=== PATIENT | male | born 1965 | race Caucasian/White ===

== ENCOUNTER 2017-03-11 15:18 | Inpatient (IN) | payer OTHER ==
--- NOTE | ~2017-03-11 | FU ---
[facility] Nutrition Therapy DATE: 03/19/17 Patient: ALL Mahoney NATHAN Physician: KRISTOPHER Address: [address] [place] [address] Room/Bed: [address] [place] [address], Zip: [place] [address] Admit Date: 03/11/17 Date of : 67 Height: 6 0 Weight: 101 46.26 NUTRITION MONITORING/FOLLOW-UP: Reason: Nutrition follow-up Anthropometrics: Ht: 6'0" Adm wt: 45.9 kg (101#) BMI: 13.7 Current wt (03/17): 45.9 kg (101#) Labs: Na+ 133, Cl- 96, Gluc 133, BUN 38, POC 146, GFR 58.2 Meds: Zofran, Levemir, Novolog, Pepcid, K, Mg I&O's: --/1303, last BM 03/18 (diarrhea) Skin: no changes, no edema noted Estimated Nutrition Needs: 9556-5320 kcal (35-40 kcal/kg) 55-82 g protein (1.2-1.8 g/kg) Assessment: Chart reviewed, events noted. Per chart, pt is currently NPO d/t dysphagia and aspiration from findings on ADMISSIONS CONSULTANT video eval. Per chart, questionable plans for PEG. Pt reported "wanting to eat" and stated he had not eaten since 2 days ago. Pt reported no diet questions at this time. RD to continue to follow. See recommendations below. Dx: Inadequate protein-energy intake RT Dx, clinical condition AEB 57% IBW. -ACTIVE -Increased nutrient needs RT Dx, PMH AEB low BMI. -ACTIVE Intervention: 1. NPO 2. EN vs. PO Monitoring, Evaluation and Goals: 1. PO intake; if diet advances, consumes >75% of meals and supplements 2. Enteral nutrition; if enteral nutrition support initiated, provide >80% of estimated needs and goal volume x 24 hrs 3. Weight; prevent unintentional weight loss, promote weight gain to healthy BMI 4. Labs; WNL Recommendations: 1. If diet advances recommend consistent carb diet, per ADMISSIONS CONSULTANT recs. 2. If diet advances, please order strawberry Glucerna TID w/ meals. [facility] Nutrition Therapy DATE: 03/19/17 Patient: ALL NATHAN Physician: KRISTOPHER Address: [address] [place] [address] Room/Bed: [address] [place] [address], Zip: [place] [address] Admit Date: 03/11/17 Date of : 67 Height: 6 0 Weight: 101 46.26 3. If pt unable to take food PO, place DHT/PEG and initiate enteral nutrition support with Glucerna 1.5 @ 15 mL/hr, advance 10 mL q 8 hrs to goal volume of 45 mL/hr. This will provide: 1620 kcal/ 89 g protein/ 821 mL free H2O. 4. Please record weights everyday for monitoring purposes. Status: Pt is at a moderate nutritional risk. RD will f/u per protocol. Respectfully, Amy Bob, Drilling Field Specialist Beatris Rodgers MS, RD, LD Food and Nutritional Services [facility] cc: client file
--- NOTE | ~2017-03-11 | OR ---
Unit #: [id number] #: [id number] Patient: ALL NATHAN [id number] [address] [place], [place] [address] [id number] I MR#: [id number] NAME: ALL NATHAN ROOM: 216 Date of Procedure: 03/19/2017 Admission Date: 03/11/2017 Surgeon: Solitario Gleason M.D. : 1965 Attending Physician: Mariah Montoya M.D. Primary Care Physician: Mariah Montoya M.D. OPERATIVE REPORT PROCEDURE PERFORMED Esophagogastroduodenoscopy with percutaneous endoscopic gastrostomy tube placement. INDICATIONS FOR PROCEDURE The patient with severe dysphagia, failed swallowing test and was aspirating, history of Roro esophagitis, history of malnutrition secondary to poor intake, undergoing evaluation with upper endoscopy for possible PEG tube placement. MEDICATIONS Monitored anesthesia. POSTOPERATIVE FINDINGS 1. Very severe Roro esophagitis with thick deposits throughout the length of the esophagus circumferentially. 2. Mild gastritis. 3. Normal duodenum and distal duodenum. 4. Successful placement of G-tube by push method in gastric body. PLAN Please see inpatient orders for details. We will start on Diflucan also. DESCRIPTION OF PROCEDURE The patient was explained of the procedure, risks, and benefits along with risks and benefits of anesthesia. He was brought to the endoscopy room. Propofol anesthesia was given. Bite block was placed. The scope was passed down the mouth into the esophagus, stomach, duodenum, and distal duodenum. Findings as described. At this point, we found a good spot for doing the PEG tube placement by indentation and transillumination which was then confirmed with safe track method. Skin was cleaned and draped. Small incision was made. Trocar and cannula passed through the incision into the stomach. A guidewire passed through the trocar was then grabbed with a snare from inside and pulled out of the patient's mouth. A push method tube was placed over the wire at this point and pulled out of the anterior abdominal wall, where it was secured with an external bumper. The scope was reintroduced. The inner bumper was nicely in place. Photodocumentation was made. Gently, the scope was pulled out. He tolerated it well. No major complications were seen. Dictated by... Solitario Gleason M.D. Unit #: [id number] #: [id number] Patient: ALL NATHAN Denzel QURESHI/aleksandr TD: 03/20/2017 01:43 JOB #: [id number] OPERATIVE REPORT Page 1 of 1 X Solitario Gleason MD PROCEDURE OPERATIVE NOTE
--- NOTE | ~2017-03-11 | EKG ---
PATIENT: ALL NATHAN UNIT #: [id number] Ventricular Rate: 106 BPM Atrial Rate: 106 BPM P-R Interval: 184 ms QRS Duration: 102 ms Q-T Interval: 396 ms QTC Calculation(Bezet): 526 ms P [place]: 77 degrees Calculated R [place]: 50 degrees Calculated T [place]: 80 degrees Diagnosis Line: Sinus tachycardia with occasional Premature Diagnosis Line: ventricular complexes Diagnosis Line: Possible Left atrial enlargement Diagnosis Line: Septal infarct , age undetermined Diagnosis Line: Inferior injury pattern Diagnosis Line: Prolonged QT Diagnosis Line: inferolateral subendocardial ischemia Diagnosis Line: Abnormal ECG Diagnosis Line: When compared with ECG of 14-JAN-2017 16:02, Diagnosis Line: Septal infarct is now Present Diagnosis Line: Inferolateral ischemia is new. Diagnosis Line: Confirmed by ULYSSES THOMPSON MD ([id number]) on 03/12/2017 Diagnosis Line: 6:19:44 AM INTERPRETING MD: JAY BURGOS
--- NOTE | ~2017-03-11 | EKG ---
PATIENT: ALL NATHAN UNIT #: [id number] Ventricular Rate: 96 BPM Atrial Rate: 96 BPM P-R Interval: 160 ms QRS Duration: 94 ms Q-T Interval: 386 ms QTC Calculation(Bezet): 487 ms P [place]: 66 degrees Calculated R [place]: 40 degrees Calculated T [place]: 36 degrees Diagnosis Line: Normal sinus rhythm Diagnosis Line: Septal infarct , age undetermined Diagnosis Line: Abnormal ECG Diagnosis Line: When compared with ECG of 12-MAR-2017 07:55, Diagnosis Line: (unconfirmed) Diagnosis Line: Septal infarct is now Present Diagnosis Line: Nonspecific T wave abnormality no longer evident Diagnosis Line: in Lateral leads Diagnosis Line: Confirmed by JAY BURGOS, ULYSSES ([id number]) on 03/14/2017 Diagnosis Line: 7:15:30 AM INTERPRETING MD: JAY BURGOS
--- NOTE | ~2017-03-11 | HP ---
Unit #: [id number] #: [id number] Patient: MOOKIE NATHAN [id number] [facility]. [address] [place], [place] [address] [id number] I MR#: [id number] NAME: MOOKIE NATHAN ROOM: [facility] Age: 51 Sex: M Admission Date: 03/11/2017 : 1965 Attending Physician: Mariah Montoya M.D. Primary Care Physician: Mariah Montoya M.D. HISTORY AND PHYSICAL ADMISSION DIAGNOSES 1. Acute renal failure. 2. DKA. 3. Abnormal EKG. 4. History of polysubstance abuse. 5. Dyslipidemia. 6. History of GERD. 7. Anemia of chronic disease. HISTORY OF PRESENT ILLNESS Mr. Mookie Nathan is a 51-year-old gentleman well known to our service secondary to prior admissions. Was brought to the emergency room with the complaints of the nausea and vomiting for the last several days with increasing weakness and fatigue. Patient was found with elevated blood glucose and DKA. He was started on IV sodium per DKA protocol. Patient also was found in acute renal failure with BUN and creatinine of 100 and 3.3. Initial evaluation also was significant for some abnormal EKG with some ST elevations even though patient denied any chest pain. Denied any shortness of air or dyspnea. Denies any headache, dizziness, fever, or chills. Had some spells of diarrhea and some abdominal discomfort. REVIEW OF SYSTEMS So, 12-point review of systems on this patient is basically negative, except as above. 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 PAST SURGICAL HISTORY Significant for splenectomy, corneal transplant x2, multiple I and Ds, right foot fifth metatarsal and hallux amputation, left hallux and fifth metatarsal partial amputation, and left second toe and second metatarsal partial amputations. MEDICATIONS Home medications include: 1. He had listed both Lantus and Levemir. 2. Amoxicillin. 3. Zestril. 4. Omeprazole. 5. Zofran. 6. Clarithromycin. Unit #: [id number] #: [id number] Patient: MOOKIE NATHAN ALLERGIES No known drug allergies. SOCIAL HISTORY Denies currently any alcohol or illicit drugs. Continues to smoke. FAMILY HISTORY Unremarkable. PHYSICAL EXAMINATION GENERAL APPEARANCE: Patient is a disheveled, 51-year-old gentleman in no acute distress. VITAL SIGNS: BP 119/94, heart rate 100, respirations 18, and temperature 97.8. HEENT: Head is atraumatic. Pupil round and reactive to light and accommodation on right. Oropharynx clear. NECK: Supple. No mass. No JVD. No bruits. CHEST: Diminished bilaterally. CARDIOVASCULAR: S1 and S2. No murmurs. ABDOMEN: Soft, nontender, and nondistended with increased bowel sounds. LOWER EXTREMITIES: Without any edema. NEUROLOGIC: Unremarkable without any new focal deficits. DIAGNOSTIC STUDIES IMAGING: Chest x-ray: No acute findings. LABORATORY: Blood gases (1) unremarkable. Chemistry: As above in HPI. Also, sodium was 123 and bicarb 20, and albumin 2.3. Serial cardiac enzymes actually were not done initially. White 14,000 and H and H 10.2 and 33.3. ASSESSMENT AND PLAN 1. DKA. Continue IV sodium per DKA protocol. ICU admission. Dr. Arroyo to follow. 2. Acute renal failure with the hyponatremia and acidosis. Dr. Yan to follow. Start on IV fluids. 3. History of opiate dependency and abuse. 4. Severe malnutrition. 5. Abnormal EKG with some ST elevations. Will do two sets of cardiac enzymes 6 hours apart and get a 2D echo and cardiology consult. 6. Diarrhea. Check stool for C. diff. 7. Anemia of chronic disease. 8. Continue GI and DVT prophylaxes with some SCDs and Pepcid. Dictated by Erasto Barrett/mona TD: 03/13/2017 08:50 JOB #: [id number] Unit #: [id number] #: [id number] Patient: MOOKIE NATHAN HISTORY AND PHYSICAL Page 1 of 1 X Steve Ashford MD HISTORY AND PHYSICAL
--- NOTE | ~2017-03-11 | EKG ---
PATIENT: ALL NATHAN UNIT #: [id number] Ventricular Rate: 91 BPM Atrial Rate: 91 BPM P-R Interval: 194 ms QRS Duration: 98 ms Q-T Interval: 392 ms QTC Calculation(Bezet): 482 ms P [place]: 72 degrees Calculated R [place]: 59 degrees Calculated T [place]: 79 degrees Diagnosis Line: Normal sinus rhythm Diagnosis Line: Prolonged QT Diagnosis Line: Abnormal ECG Diagnosis Line: When compared with ECG of 11-MAR-2017 16:11, Diagnosis Line: Premature ventricular complexes are no longer Diagnosis Line: Present Diagnosis Line: Criteria for Septal infarct are no longer Present Diagnosis Line: Nonspecific T wave abnormality now evident in Diagnosis Line: Lateral leads Diagnosis Line: Confirmed by DANIA SÁNCHEZ MD ([id number]) on Diagnosis Line: 03/13/2017 4:48:03 PM INTERPRETING MD: ALEX
--- NOTE | ~2017-03-11 | FU ---
[facility] Nutrition Therapy DATE: 03/15/17 Patient: ALL NATHAN Physician: KRISTOPHER Address: [address] [facility] Room/Bed: [address] [place] [address], Zip: [place] [address] Admit Date: 03/11/17 Date of : [birth year] Height: 6 0 Weight: 110 50 NUTRITION MONITORING/FOLLOW-UP: Reason: Nutrition follow-up Anthropometrics: Ht: 6'0" Adm wt: 45.9 kg (101#) BMI: 13.7 Current wt: 50 kg (110#) Labs: Na+ 130, Gluc 242, BUN 43, Creat 1.7, Ca++ 8.0, POC 267, GFR 46.0 Meds: Zofran, Levenir, Novolog, Pepcid, K, Mg I&O's: 2530/1225, last BM 03/13 Skin: Red (coccyx), amputations (L foot 1st, 2nd toe/ R foot 5th toe), no edema noted Estimated Nutrition Needs: 5772-3933 kcal (35-40 kcal/kg) 55-82 g protein (1.2-1.8 g/kg) Assessment: Chart reviewed, events noted. Pt was transferred from ICU to /. Pt is currently on a consistent carb diet. Pt reported minimal intake, stating he did not eat breakfast, d/t poor appetite and nausea. RD internal recruiter gave written and verbal diabetic diet education. Pt reported eating very little during the day. RD internal recruiter encouraged consuming adequate calories and eating consistently throughout the day w/ 3 meals/d. Pt verbalized understanding. Pt reported drinking lots of water during the day and decreasing the amount of soda he drinks. RD internal recruiter encouraged adding fruit to water. RD internal recruiter encouraged Glucerna shakes, pt agreed. Pt had no diet questions at this time. See recommendations below. Dx: Inadequate protein-energy intake RT Dx, clinical condition AEB 13.7 BMI, 57% IBW. -ACTIVE -Increased nutrient needs RT Dx, PMH AEB low BMI noted. -ACTIVE Intervention: 1. Diet education 2. Glucerna TID 3. Consistent carb diet Monitoring, Evaluation and Goals: NOT MET 1. PO intake; consume >75% of meals and supplements 2. Weight; prevent unintentional weight loss, promote gradual weight gain 3. Labs; WNL: glucose 4. Skin; promote healing [facility] Nutrition Therapy DATE: 03/15/17 Patient: ALL NATHAN Physician: KRISTOPHER Address: [address] [place] [address] Room/Bed: [address] [place] [address], Zip: [place] [address] Admit Date: 03/11/17 Date of : [birth year] Height: 6 0 Weight: 110 50 Recommendations: 1. Please order strawberry Glucerna shakes TID w/ meals. 2. Encourage compliance to consistent carb diet. 3. Reconsult RD if further diet education is needed/requested. 4. Add multivitamin + 100-200 mg Vitamin C daily to pt's current medication regimen to promote skin healing. Status: Pt is at a moderate nutritional risk. RD will f/u per protocol. Respectfully, Amy Bob, Plant Operator Beatris Rodgers MS, RD, LD Food and Nutritional Services [facility] cc: client file
--- NOTE | ~2017-03-11 | CR72 ---
[facility] A Service of [facility] RADIOLOGY TEXT RESULTS PATIENT: ALL NATHAN LOCATION: [place] [address] : [birth year] UNIT #: [id number] AGE: [address]: Mariah Montoya MD SEX: M ORDER DR: [id number] [facility] [address] [facility]. [place], [place] [address] [id number] MR#: [id number] Acc #: [id number] NAME: ALL NATHAN : 1965 SEX: M STUDY DATE/TIME: 03/11/2017 16:06 UNIT: [facility] ROOM: [address] STUDY DESCRIPTION: CR Chest Single View Portable Attending Physician: Mariah Montoya M.D. Ordering Physician: Dayne Delgado M.D. Primary Care Physician: Mariah Montoya M.D. MEDICAL IMAGING REPORT This report is preliminary unless electronic signature is present EXAM Portable AP view of the chest COMPARISON 01/14/2017, 09/21/2016 and 06/02/2016 INDICATIONS 51-year-old male with dyspnea and hypotension for 1 week. FINDINGS Cardiomediastinal silhouette is normal. There is stable findings suggestive of emphysema. No evidence of pneumothorax, pleural effusion or acute airspace disease. IMPRESSION No acute radiographic abnormality of the chest. Stable findings suggesting emphysema. Dictated by... Hawk Gordon M.D. THIS IS AN ELECTRONICALLY VERIFIED REPORT Hawk Gordon M.D. at 03/15/2017 4:30 PM BLM/to TD: 03/11/2017 19:02 JOB #: [id number] MEDICAL IMAGING REPORT Page 1 of 1 COPY
--- NOTE | ~2017-03-11 | A ---
[facility] Nutrition Therapy DATE: 03/12/17 Patient: ALL Mahoney NATHAN Physician: KRISTOPHER Address: [address] [facility] Room/Bed: [address], Zip: [place] [address] Admit Date: 03/11/17 Date of : [birth year] Height: 6 0 Weight: 101 46 NUTRITIONAL ASSESSMENT: REASON: NO DIET ORDER IN ICU + LOW BMI PT IS 51 Y.O. MALE ADMITTED FOR DEHYDRATION, DKA PMH: NO RECENT H&P IN [facility]. PER CHART/PAST RD NOTES: TYPE 1 DM, HTN, HLD, GERD, RESP FAILURE, POLYSUBSTANCE ABUSE, BLINDNESS (L) EYE, NONCOMPLIANT W/MEDICATIONS Anthropometrics: 6'0", WT: 101# (46 KG), BMI: 13.7, 57%IBW Labs: BUN: 78, CREAT: 8.2, ALB: 2.1, ALT: 9, M.2, NA+:130 Meds: NACL, KCL, MAG SULFATE, D5% I/O & Bowel function: 2248/175 Skin Integrity: STAGE 2 PRESSURE ULCER COCCYX; AMPUTATION TOES (R) FOOT 5TH; (L) FOOT GREAT TOE & 2ND AMPUTATION Estimated Nutrition Needs: 0655-1205 KCAL (35-40 KCAL/KG BW) 55-82 G PRO (1.2-1.8 G PRO/KG BW) FLUIDS CONSISTENT W/KCAL NEEDS Assessment: CHART REVIEWED AND EVENTS NOTED. PT SEEN FOR NO DIET ORDER IN ICU ASSESSMENT + LOW BMI. PER RN AND CHART, PT NPO 2' DKA PROTOCOL. RD ATTEMPTED TO SPEAK TO PT THIS AM BUT PT SLEEPY/LETHARGIC, DID NOT WAKE TO VERBAL CUES. OF NOTE, PT WAS SEEN BY RD IN NOV 2016. NO FAMILY IN ROOM AT TIME OF VISIT. RD TO FOLLOW. SEE RECOMMENDATIONS BELOW. Dx: INADEQUATE PROTEIN-ENERGY INTAKE R/T DX, CURRENT CONDITION AEB LOW BMI OF 13.7, 57%IBW. -INCREASED NUTRIENT NEEDS R/T DX, PMH AEB LOW BMI NOTED. Intervention: 1. NPO Monitoring, Evaluation and Goals: 1. ORAL INTAKE; PROVIDE AND CONSUME ADEQUATE NUTRITION W/NO C/O N/V/D (PO>50%) 2. WEIGHTS; PROMOTE GRADUAL WEIGHT GAIN; PREVENT ANY WEIGHT LOSS; 3. LABS; WNL 4. SKIN; PROMOTE SKIN HEALING MONITOR: [facility] Nutrition Therapy DATE: 03/12/17 Patient: ALL NATHAN Physician: KRISTOPHER Address: [address] [place] [address] Room/Bed: [id number] [facility], Zip: [place] [address] Admit Date: 03/11/17 Date of : 67 Height: 6 0 Weight: 101 46 -DIET ADVANCEMENT -PO INTAKE/APPETITE -WEIGHTS -LABS Recommendations: 1. ONCE MEDICALLY FEASIBLE, BEGIN WITH CLEARS AND ADVANCE DIET TOLERATED TO 75 GRAMS OF CARBS PER MEAL (CC DIET) 2. ORDER GLUCERNA SHAKES TID W/MEALS ONCE DIET ADVANCES FOR ADDITIONAL KCAL AND PROTEIN 3. IF PT UNABLE TO TOLERATE PO INTAKE, RECOMMEND TO BEGIN ALTERNATIVE NUTRITION SUPPORT OF GLUCERNA 1.5 @ 20 ML/HR, ADVANCE 10 ML q 6 HOURS TO GOAL RATE OF 45 ML/HR -PROVIDES 1620 KCAL, 89 G PRO, 821 ML FREE H20 ADD FREE H20 FLUSHES PER MD RD WILL F/U PER PROTOCOL PT IS MOD/SEVERELY COMPROMISED Respectfully, MIHIR BLOOM MS, RD, LD Food and Nutritional Services [facility] cc: client file
--- NOTE | ~2017-03-11 | CO ---
Unit #: [id number] #: [id number] Patient: ALL NATHAN [id number] [address] [place], [place] [address] [id number] MR#: [id number] NAME: ALL NATHAN ROOM: 561 Age: 51 Sex: M Admission Date: 03/11/2017 : 1965 Attending Physician: Mariah Montoya M.D. Primary Care Physician: Mariah Montoya M.D. Consultation Date: 03/12/2017 CONSULTATION REPORT REASON FOR CONSULT Acute kidney injury. HISTORY OF PRESENT ILLNESS Mr. Nathan is a 51-year-old male with a history of diabetes with poor control, who presented to the emergency room with several weeks of poor p.o. intake with nausea, vomiting, and diarrhea. The patient had just gotten out of the hospital in November with C difficile colitis. The patient is noted to be on lisinopril on admission. He is also on some antibiotics for reasons that are unclear as he does not know why he is taking the antibiotics. His blood sugars were quite elevated and he had to be started on DKA protocol. His C difficile has just returned positive. The patient denies the use of any NSAIDs at home. He has not had any contrast exposure. No history of kidney stones. The patient's creatinine does seem to be falling with IV fluids. Of note, the patient states that he is a heroin and methamphetamine user and says that he does not inject heroin, but snorts it. His last use according to him was about two months ago. PAST MEDICAL HISTORY Significant for diabetes, left eye blindness, neuropathy, history of osteomyelitis, GERD, hyperlipidemia. PAST SURGICAL HISTORY He has had a splenectomy, corneal transplant, toe amputations. HOME MEDICATIONS He is on Lantus insulin as directed, amoxicillin 500 mg b.i.d., Zestril 2.5 mg a day, omeprazole 40 mg b.i.d., clarithromycin every 12 hours, and Zofran p.r.n. ALLERGIES He has no known drug allergies. FAMILY HISTORY He is unaware of any family history of kidney disease or anyone on dialysis. There is a family history of diabetes. SOCIAL HISTORY The patient does smoke, also uses marijuana. Again, no methamphetamine or heroin use for about two months. REVIEW OF SYSTEMS A complete 12-point review of systems was completed with the above Unit #: [id number] #: [id number] Patient: ALL NATHAN. In addition, the patient denies any headaches. He has had some dizziness and weakness. No nosebleed, sore throat, or earache. No chest pain or palpitations. No hemoptysis. No hematemesis. No bright red blood per rectum or melena. He has had abdominal pain. No dysuria or hematuria. No swelling. No rashes or itching. No flank pain. No fevers. No chills. No night sweats. No hot flashes. No intolerance to heat or cold. No bleeding issues. He does think he has lost weight. Unless otherwise indicated, the review of systems was negative. PHYSICAL EXAMINATION VITAL SIGNS: The patient is afebrile. Pulse 89, respiratory rate 10, and blood pressure 96/67. Blood pressure has been as low as 83/58. I's and O's are positive by 2 L thus far. GENERAL: This is a 51-year-old male, appears older than his stated age, emaciated, weak, but in no acute distress. HEENT: Head is atraumatic and normocephalic. Eyes show pale conjunctivae. No nasal drainage. No nosebleed. Oropharynx is dry. No thrush. NECK: Shows no JVD. No rigidity. HEART: Regular rate and rhythm with no significant murmur, gallop, or rub appreciated. LUNGS: Clear with no wheezing or rhonchi. Breathing is nonlabored. ABDOMEN: Thin and soft. There are bowel sounds present. Does have mild diffuse tenderness to palpation. EXTREMITIES: No lower extremity cyanosis or edema. He is missing some toes on both feet. SKIN: Dry without rashes. MUSCULOSKELETAL: No joint effusions noted. No CVA tenderness to palpation. NEUROLOGIC: Shows some generalized weakness, but no focal deficits. LYMPHATIC: There is no neck or cervical lymphadenopathy. PSYCHIATRIC: Mood appears somewhat depressed, and affect is flat. DIAGNOSTIC STUDIES LABORATORY RESULTS: Most recent chemistry from 8:20 this morning showed a sodium of 130, potassium 3.8, chloride 99, bicarb 18, glucose 86, BUN 78, creatinine down to 2.5. C diff did come back positive. ABG this morning; pH of 7.36, pCO2 of 38, pO2 of 106, bicarb 22. His magnesium level was high at 4.2, albumin 2.1. Beta-hydroxybutyrate was just 0.11. CK level 19. CBC this morning showed a white count of 13, hemoglobin 9.5, platelet count 319. Phosphorus was 3.7. Troponin 0.06. Lactic acid 1.6. Urine drug screen positive for marijuana. Urinalysis did show some white blood cells, sugar and just trace ketones, numerous white blood cells. Admission chemistry showed a sodium of 123 with a sugar of 863, potassium 5, chloride 85, bicarb was 24, anion gap of about 18, BUN and creatinine were 100 and 3.3 respectively. Alcohol was negative. Admission lactic acid level 1.2. Admission ammonia level 11. Therefore, overall creatinine is improved from 3.3 down to 2.5. Potassium which dropped to an initial low level at 3.6, it is now 3.8. Prior hemoglobin A1cs have all been in double digits over the last several years with a high of 17.9. Previous urines have mostly been negative for protein. IMAGING STUDIES: Chest x-ray yesterday showed no acute findings. Old imaging was reviewed. I do see a CT of the abdomen from 08/2015. Kidneys were within normal limits for size, although slightly small. There was a cyst in the lower pole of the left kidney. ASSESSMENT AND PLAN Unit #: [id number] #: [id number] Patient: ALL NATHAN 1. Acute kidney injury. This looks to be all prerenal from significant dehydration with nausea, vomiting, and dehydration at home as well as hypotension. He was also on an TANA inhibitor. He is also noted to be on antibiotics for unclear reasons and on a proton pump inhibitor. We will check urine eosinophils for workup of acute interstitial nephritis, but otherwise continue IV fluids. 2. Hypotension. This has improved with fluids, which we will continue. 3. Hypokalemia. This was replaced by Dr. Feldman overnight and is better. I will be adding some IV potassium to the IV fluids. 4. Clostridium difficile colitis. The patient had to be switched over to vancomycin last admission after failure with Flagyl. For now, I will put him on Flagyl and vancomycin. Internal Medicine sees the patient. 5. Diabetic ketoacidosis versus hyperosmolar nonketotic state. His ketones were only trace and his beta-hydroxybutyrate was negative. Either way, we will continue the insulin drip and Dr. Arroyo has been asked to see. 6. History of polysubstance abuse. I would like to thank Dr. Montoya for this consult and the opportunity to participate in the evaluation and care of Mr. Nathan. Dictated by... Tushar Salazar Jr., M.D. CALEB/aleksandr TD: 03/13/2017 01:50 JOB #: [id number] CONSULTATION REPORT Page 1 of 1 X Tushar Salazar MD X CONSULTATION REPORT
--- NOTE | ~2017-03-11 | CO ---
Unit #: [id number] #: [id number] Patient: ALL NATHAN [id number] [facility]. [address] [place], [place] [address] [id number] MR#: [id number] NAME: ALL NATHAN ROOM: 561 Age: 51 Sex: M Admission Date: 03/11/2017 : 1965 Attending Physician: Mariah Montoya M.D. Primary Care Physician: Mariah Montoya M.D. Consultation Date: 03/12/2017 CONSULTATION REPORT REASON FOR CONSULTATION Hypotension and abnormal EKG. HISTORY OF PRESENT ILLNESS This is a 51-year-old white male with a history of poorly controlled diabetes mellitus, hypertension, hyperlipidemia, history of opiate addiction in the past, nicotine abuse, chronic pain syndrome, anemia of chronic disease, was in the hospital earlier this year for postural hypotension due to volume depletion and chronic diarrhea, who came to the emergency room after having a two week history of decreased oral intake, increased nutritional intake, elevated blood sugars, weakness, lightheadedness. He says he hasn't had a glucose monitoring machine in several weeks but he felt like his blood sugars are running high due to his symptoms. He has generalized aches and pains, especially his lower extremities and abdomen. He had some nausea and occasional dry heaving and vomiting. He denies any chest pain, pain in his neck, bilateral jaws, shoulders, arms or elbow. He denies any palpitations. He says he hasn't had no syncopal episodes but he was sop weak his gait was unsteady and he almost fell. He denies any shortness of breath, no cough, fever or chills. In the emergency room, the patient's blood pressure was 94/78, heart rate 96, respirations 16, temperature 97.8, O2 sat was 96% on room air. His glucose was found to be 863, sodium 123. His magnesium is 4.2, his creatinine was 3.3. The patient's EKG revealed sinus tachycardia with occasional premature ventricular complex, left atrial enlargement, some nonspecific ST-T wave abnormalities in inferior lateral indicating possibly some ischemia and septal infarct, now present which was not on the last EKG. The patient was started on some IV fluids, given 2 L of normal saline and also started on insulin drip per protocol for DKA. The patient was also started on some Zofran and got Dilaudid for pain. After Dilaudid, the patient's blood pressure had dropped from the 110s down to the upper 80s and low 90s systolically. Cardiology has been consulted to see the patient for hypotension in addition to his abnormal EKG. It was noted the patient's potassium on admission was 5.0. Our group had seen the patient last August for a syncopal episode and it was felt that his syncope was secondary to volume depletion and his chronic diarrhea. At the time, he did have C. difficile colitis. PAST MEDICAL HISTORY 1. History of postural hypotension secondary to volume depletion and chronic diarrhea. 2. Poorly controlled diabetes mellitus. Unit #: [id number] #: [id number] Patient: ALL NATHAN 3. Hypertension. 4. Hyperlipidemia. 5. History of chronic pain. 6. History of C. diff colitis 11/2016. 7. Anemia of chronic disease. 8. 2012 Lexiscan Cardiolite stress test revealed no ischemia, EF of 55%. 9. 01/2015 2D echo shows LVEF of 45% to 50% with mitral valve chordae attachment appear thickened. 10. Gastroesophageal reflux disease. 11. Right foot and left foot partial amputation secondary to osteomyelitis. 12. History of opiate addiction in the past. 13. Nicotine abuse. PAST SURGICAL HISTORY 1. Splenectomy. 2. Left cornea transplant x2. 3. Right foot fifth metatarsal and left foot hallux and first metatarsal amputation secondary to osteomyelitis. HOME MEDICATIONS 1. Lantus 10 units subcu three times daily before meals. 2. Levemir 18 units subcu twice daily. 3. Amoxicillin 500 mg p.o. twice daily. 4. Zestril 2.5 mg p.o. daily. 5. Omeprazole 40 mg p.o. twice daily. 6. Clarithromycin, one tablet p.o. every 12 hours. 7. Ondansetron 8 mg p.o. three times daily. ALLERGIES No known drug allergies. SOCIAL HISTORY The patient lives in his home with his , he said up to two weeks ago. Since his discharge in November, he had gotten stronger and he was doing a little bit of yard work. He still drives. He continues to smoke about a half pack of cigarettes a day. He has been smoking most of his adult life. No alcohol but has a history of opiate use. Drug abuse in the past but says he only uses methadone occasionally. FAMILY HISTORY Negative for any cardiac issues. His brother has diabetes. REVIEW OF SYSTEMS See details in HPI. PHYSICAL EXAMINATION GENERAL: On exam, the patient is a 51-year-old white male. He seems somewhat emaciated. His weight is only 101 pounds. VITAL SIGNS: Blood pressure is 96/67, heart rate 89, respirations 16, temperature 97.6, O2 sat is 98% on room air. NECK: Trachea midline. No thyromegaly or lymphadenopathy. Normal carotid upstrokes. No jugular venous distention. HEART: S1, S2. Regular rate and rhythm. No clicks, murmurs or rubs. LUNGS: Very diminished. ABDOMEN: Soft, slightly tender with palpating lower quadrants. EXTREMITIES: Pedal pulses are palpable but faint. No pedal edema. Unit #: [id number] #: [id number] Patient: ALL NATHAN DIAGNOSTIC STUDIES LABORATORY: These are today's labs - glucose from 863, went down to 297 and this morning his Accu-Chek is 121. BUN 78, creatinine 2.2, eGFR is 28.9, sodium 130, potassium 3.8, chloride 99, CO2 18, calcium is 8.2, phosphorus is 3.0, magnesium is 4.2. Total protein 6.4, albumin 2.1, bili total 0.4, AST 13, ALT 9, alkaline phos. is 163. BNP is 212, ammonia level is 11. Lactic acid is 1.2 and then 1.6. Alcohol level less than 5. Initial cardiac enzymes - CK MB is 2.2, troponin less than 0.05. WBC 13.0, hemoglobin 9.5, hematocrit 29.4 and platelets 319. Urine tox screen positive for marijuana. Urinalysis - 3+ leukocyte esterase, glucose greater than 1000, 0.2 urobilinogen, 2+ blood, 5-10 RBCs, innumerable WBCs and negative bacteria. Stool, urine and blood cultures are pending. IMAGING: Chest x-ray shows nothing acute. Stable findings suggesting emphysema. CARDIOVASCULAR: EKG shows sinus rhythm and sinus tachycardia with ventricular rate 160 beats per minute with occasional premature ventricular complex, possible left atrial enlargement, septal infarct age undetermined. Inferior lateral ischemia, prolonged QT. Septal infarct is new. Repeat EKG this morning shows normal sinus rhythm with ventricular rate 91 beats per minute. Probable Q wave in V1. Has improved from his initial EKG. Some nonspecific ST-T wave abnormalities. IMPRESSION 1. Diabetic ketoacidosis, poorly controlled diabetes mellitus. 2. Acute kidney injury. 3. Hypotension. 4. History of postural hypotension in the past from volume depletion and chronic diarrhea. 5. Chronic pain syndrome and has chronic diarrhea. 6. Anemia of chronic disease. 7. Hyperlipidemia. 8. 2012 Lexiscan Cardiolite stress test - no ischemia with ejection fraction of 55%. 9. LVEF of 45% to 50% on 2D echo 01/2016. 10. Gastroesophageal reflux disease. 11. Partial amputations of right and left foot. 12. Nicotine abuse. 13. History of opiate addiction in the past. PLAN 1. Cardiology consulted to assist with evaluation and management. 2. Will continue the IV fluids even though patient wants to eat because of hypotension. 3. Patient is on insulin drip and they are following the DKA protocol. Dr. Arroyo has been consulted. 4. Abnormal EKG. 5. Obtain a 2D echo to re-evaluate his LV function and valves. On Unit #: [id number] #: [id number] Patient: ALL NATHAN stress test back in 2012, his ejection fraction was 55%. Last year his LVEF was 45% to 50% so will evaluate to make sure there is no diminishing in the ejection fraction. 6. Not able to put the patient on an TANA inhibitor or ARB for cardiomyopathy because of his hypotension and acute kidney injury. 7. Will need to consider ischemic heart disease workup when more stable. 8. Encouraged patient to completely quit smoking. 9. Will have the career technical education teacher or social media content manager to see the patient. He needs some diabetic supplies at home including Accu-Chek machine to have better control over his diabetes mellitus. 10. On exam, there are no signs or symptoms of unstable angina. Cardiac enzymes are negative. EKG does not show anything acute. 11. Continue to monitor cardiac enzymes and EKG. Repeat EKG today shows a significant improvement, most likely secondary to his acute kidney injury and electrolyte imbalance. 12. Will need to do ischemic heart disease workup at a later date. 13. Further recommendations pending per Dr. Sharif. Thank you very much for allowing us to assist in the care. Dictated by... Hiwot Mitchell A.P.R.N. for Erasto Youngblood/amy TD: 03/13/2017 11:54 JOB #: [id number] CONSULTATION REPORT Page 1 of 1 X Hiwot Mitchell APRN X CONSULTATION REPORT
--- NOTE | ~2017-03-11 | CO ---
Unit #: [id number] #: [id number] Patient: ALL NATHAN [id number] [address] [place], [place] [address] [id number] MR#: [id number] NAME: ALL NATHAN. ROOM: 561 Age: 51 Sex: M Admission Date: 03/11/2017 : 1965 Attending Physician: Mariah Montoya M.D. Primary Care Physician: Mariah Montoya M.D. Consultation Date: 03/15/2017 CONSULTATION REPORT REASON FOR CONSULTATION C-diff colitis. HISTORY OF PRESENT ILLNESS The patient is a 51-year-old male who had been to our service in 11/2016 for his first relapse of c-diff colitis. The patient now is admitted with symptoms per the patient of dehydration. In further discussion with the patient, he reports that he had continued nausea and diarrhea, but then began with fatigue and vomiting at home for a few days. The patient also complained of weakness, but did not complain of any significant fever. He was admitted to the hospital and was found to have some acute kidney injury, as well as being in diabetic ketoacidosis. The patient's creatinine has been trending down, but he continues with abdominal pain and diarrhea. The patient also has been seen by the cardiology service secondary to abnormal EKG. The patient does report that he has watery diarrhea with no blood present. He continues to have an appetite, however, and was ordering breakfast when I entered the room. The patient is on p.o. vancomycin and Flagyl and ID was asked to evaluate for further antibiotic management. PAST MEDICAL HISTORY 1. Osteomyelitis of the right and left toes, status post amputation and healed incision for peripheral neuropathy. 2. Left eye blindness. 3. Opiate addiction. 4. Gastroesophageal reflux disease. 5. Dyslipidemia. PAST SURGICAL HISTORY 1. Splenectomy. 2. Corneal transplant times two. 3. Multiple incisions and drainage of the right foot and left foot. SOCIAL HISTORY He denies any alcohol or drug use, but does have some tobacco abuse. ALLERGIES No known drug allergies. CURRENT MEDICATIONS 1. P.o. vancomycin. 2. Flagyl. His home medications did reveal amoxicillin. In discussion with the Unit #: [id number] #: [id number] Patient: ALL NATHAN patient, he reports he was on "medicine for infection." REVIEW OF SYSTEMS He denies any fevers or chills. He does report nausea with vomiting this morning. Diarrhea four to five times a day which is watery in nature, with no blood in the stool. The patient reports he has no chest pain. He has no shortness of breath. He has no nonhealing wounds. PHYSICAL EXAMINATION GENERAL: This is a frail cachectic male who is laying in the bed comfortably, speaking on the phone. VITALS: Temperature 97.4 with no elevated temperature this admission. Pulse 84, blood pressure 145/102 and respiratory rate 18. HEENT: His pupils are equal. NECK: Supple. LUNGS: Clear to auscultation bilaterally with no wheezes or rhonchi noted. HEART: S1 and S2. Regular rate and rhythm. ABDOMEN: Positive bowel sounds. Tenderness in all four quadrants. No organomegaly appreciated. EXTREMITIES: No clubbing, cyanosis or edema. He has healed incisions on both feet without any open draining wounds. DIAGNOSTIC STUDIES LABORATORY: BUN 43, creatinine 1.7, sodium 130, potassium 4.2, chloride 98, CO2 22, bilirubin 0.2, AST 13, ALT 10, lactic acid on admission 1.6. White blood cell count 11.2, which is improved from 15.4, hemoglobin 9.2, hematocrit 28.4, platelets 329. Tox screen positive for marijuana. Urinalysis on admission greater than 1000 glucose, 2+ blood, innumerable WBCs, negative bacteria. C-diff positive this admission. Urine culture shows yeast. Blood cultures are negative to date. There is no current imaging. ASSESSMENT This is a 51-year-old male known to our service as he had an episode of first relapse of c-diff colitis in 11/2015. The patient now is admitted with increasing vomiting at home for a few days prior to admission, with continued nausea and chronic diarrhea. The patient was found to be in diabetic ketoacidosis, acute renal failure and was also found to have positive c-diff by DNA sample. The patient per the admission chart was recently on amoxicillin, but when asked the patient reports that he was taking it for infectious reasons, but is nonspecific. Suspect the patient has a second relapse of c-diff colitis. Will discontinue vancomycin and Flagyl as he continues to have four to five bowel movements that are watery in nature a day and cramping and vomiting. However, he does still have an appetite with no distension. Will change the patient to Dificid 200 mg p.o. b.i.d. Will check an abdominal film secondary to the patient's ongoing vomiting and discuss with Dr. Steven Saxena. Thank you for allowing us to participate in the care of this patient. Will recommend the patient not have any additional antibiotics for any reason unless cleared by the infectious disease service. Further recommendations to follow pending the patient's clinical course. Dictated by... Lesley Brooks A.P.R.N. for Steven Saxena M.D. Unit #: [id number] #: [id number] Patient: ALL NATHAN Denzel GUEVARA/gz TD: 03/15/2017 09:10 JOB #: [id number] CONSULTATION REPORT Page 1 of 1 X X CONSULTATION REPORT
--- NOTE | ~2017-03-11 | CR7 ---
[facility] A Service of [facility] & [facility] RADIOLOGY TEXT RESULTS PATIENT: ALL NATHAN LOCATION: [facility] 561-01 : 67 UNIT #: [id number] AGE: [address]: Mariah Montoya MD SEX: M ORDER DR: [id number] [facility] [address] [place]. [place], [place] [address] [id number] I MR#: [id number] Acc #: [id number] NAME: ALL NATHAN : 1965 SEX: M STUDY DATE/TIME: 03/15/2017 9:45 UNIT: [facility] ROOM: [facility] STUDY DESCRIPTION: CR Abdomen Single AP View Attending Physician: Mariah Montoya M.D. Ordering Physician: Physician Non-Staff Primary Care Physician: Mariah Montoya M.D. MEDICAL IMAGING REPORT This report is preliminary unless electronic signature is present EXAM AP abdomen, 03/15/2017 HISTORY 51-year-old male hospital inpatient with C. difficile colitis, abdomen pain and dehydration. Symptoms since about 03/11/2017. TECHNIQUE AP supine image of the abdomen and pelvis. FINDINGS Bowel gas pattern is normal. There is no bowel dilatation to suggest obstruction or adynamic ileus. No visible radiopaque abdominal calculi, with the exception of presumed vascular calcifications in the left lower pelvis. IMPRESSION Negative abdomen. Dictated by... Haider Junior M.D. THIS IS AN ELECTRONICALLY VERIFIED REPORT Haider Junior M.D. at 03/16/2017 2:04 PM Cassie TD: 03/15/2017 11:28 JOB #: [id number] MEDICAL IMAGING REPORT Page 1 of 1 COPY
--- NOTE | ~2017-03-11 | DS ---
Unit #: [id number] #: [id number] Patient: MOOKIE NATHAN [id number] [address] [place], [place] [address] [id number] MR#: [id number] NAME: MOOKIE NATHAN ROOM: 216 Age: 51 Sex: M Admission Date: 03/11/2017 : 1965 Discharge Date: 03/20/2017 Attending Physician: Mariah Montoya M.D. Primary Care Physician: Mariah Montoya M.D. DISCHARGE SUMMARY FINAL DIAGNOSES 1. Diabetic ketoacidosis, which is resolved. 2. Acute kidney injury with hyponatremia, which is improved. 3. Hypertension, improved, although the patient does have chronic hypertension. 4. History of syncope secondary to postural hypertension and volume depletion, resolved. 5. Clostridium difficile colitis. 6. Severe Roro esophagitis. 7. Malnutrition. 8. Dysphagia status post percutaneous gastrostomy tube placement. 9. Left ventricle ejection fraction of 55 to 60%. 10. History of polysubstance abuse. CONSULTATIONS DURING HOSPITALIZATION 1. Dr. Sharif from Cardiology Services. 2. Dr. Arroyo from Endocrinology Services. 3. Dr. Gleason from GI Services. 4. Dr. Tushar Salazar and Dr. Yan from Renal Services. ADMITTING PHYSICIAN Dr. Steve Ashford. DISCHARGING PHYSICIAN Dr. Mariah Montoya. LAB WORKUP ON DISCHARGE Sodium 132, potassium 4.6, chloride 96, BUN 34, creatinine 1.5. Liver enzymes are stable. CBC shows WBC 12.3, hemoglobin 9.3, hematocrit 29.5, platelet count 384. Magnesium 1.6. PROCEDURE PERFORMED DURING HOSPITALIZATION EGD and PEG placement. EGD was done by Dr. Gleason which showed very severe Roro esophagitis with (1) deposits throughout the length of esophagus circumferentially, mild gastritis, normal duodenum and distal duodenum, successful placement of the G-tube by push method in the gastric body. DISCHARGE MEDICATIONS 1. Tylenol 650 mg q.4 p.r.n. 2. Zofran 8 mg p.o. t.i.d. p.r.n. 3. Levemir 10 units subcu daily. 4. NovoLog 3 units subcu three times a day with meals. 5. Dificid 200 mg twice a day. Unit #: [id number] #: [id number] Patient: MOOKIE NATHAN 6. Pepcid 20 mg daily. 7. Florastor 250 mg twice a day. 8. Fluconazole 100 mg daily for seven days. RADIOLOGICAL STUDIES SIGNIFICNAT DONE DURING HOSPITALIZATION 1. Chest x-ray on admission which showed no acute radiographic abnormality of the chest. 2. Abdomen x-ray on 03/15/2017 which shows negative abdomen. 3. CT scan of the head without contrast on 03/18/2017 showed no evidence for acute intracranial injury. HOSPITAL COURSE Mr. Mookie Nathan is a 51-eyar-old male who was admitted by colleague, Dr. Ashford, with admitting diagnosis of DKA, acute renal failure and abnormal EKG. Please refer to H and P for complete history and physical. The patient was diagnosed with DKA. The patient has type one diabetes mellitus which is uncontrolled. The patient does have a poor compliance. He has had amputation of the left and right great and second toe, has peripheral neuropathy and was seen by Dr. Arroyo. The patient was started on insulin drip, DKA protocol. The patient was admitted to ICU, later on, changed to Levemir. The patient's sugars have been stable during hospitalization now but he does need to be compliant with his diet and medications. His hemoglobin A1C, which was done on March 12, 2017. It was 14.5. It has been uncontrolled since 2013 at least. The patient was seen by Cardiology because of hypotension and abnormal EKG. A 2-D echocardiogram was done which showed ejection fraction of 55%, no regional wall motion abnormality, moderate thickening of the mitral valve leaflet, mild mitral valve prolapse, mild tricuspid regurgitation and no evidence of pericardial effusion. Cardiac enzymes were done which were negative. EKG does not show anything acute as per Cardiology. No further workup is needed at this time. The patient was found to have acute kidney injury. The patient was significantly dehydrated, has been having nausea, vomiting and diarrhea. The patient's TANA inhibitor was taken off. IV fluids were started. Proton pump inhibitor was discontinued. The patient also had hypokalemia. His renal functions have improved from admission. On admission, the patient's BUN was 86. On discharge, it is 34. On admission, creatinine was 3.3. On discharge, it is 1.5. The patient does need to follow up with Dr. Yan's group as outpatient. The patient needs to have enough hydration and, also, no NSAIDs over the counter. TANA inhibitors are off at this time because of renal failure. The patient continued to have diarrhea in the hospital. C. diff. was done. The patient was found to have C. diff. colitis. He was seen by Infectious Disease. He has been on Dificid because this is recurrent C. diff. His diarrhea is somewhat improved. The patient complained of dysphagia. Dr. Gleason was consulted. The patient had EGD done. Findings are as above. The patient has been placed on fluconazole. The patient will need to follow up with Dr. Gleason as outpatient. Hypertension. It has improved somewhat, need to check manual blood pressure most of the time because manual blood pressure is always better. The patient does not complain of dizziness at this time, although fall Unit #: [id number] #: [id number] Patient: MOOKIE NATHAN precaution needs to be continued because the patient did have a fall in the hospital. DISCHARGE INSTRUCTIONS 1. The patient is being discharged to rehab in stable condition. 2. Medication as per medication reconciliation. 3. Fall precaution. 4. PT, OT continue. 5. Continue feeding through PEG tube. 6. Follow up with Dr. Gleason in two to three weeks. 7. CBC and BMP to be done in one week. 8. Follow up with Dr. Yan in one month or so. Dictated by... Mariah Montoya M.D. LAITH/darrell TD: 03/20/2017 14:11 JOB #: [id number] DISCHARGE SUMMARY Page 1 of 1 X Mariah Montoya MD X DISCHARGE SUMMARY
--- NOTE | ~2017-03-11 | CT71 ---
[facility] A Service of [facility] RADIOLOGY TEXT RESULTS PATIENT: ALL NATHAN LOCATION: [facility] : 67 UNIT #: [id number] AGE: [address]: Mariah Montoya MD SEX: M ORDER DR: [id number] [facility] [address]. [place], [place] [address] [id number] MR#: [id number] Acc #: [id number] NAME: ALL NATHAN : 1965 SEX: M STUDY DATE/TIME: 03/18/2017 8:53 UNIT: [facility] ROOM: [facility] STUDY DESCRIPTION: CT Head Wo Contrast Attending Physician: Mariah Montoya M.D. Ordering Physician: Mariah Montoya M.D. Primary Care Physician: Mariah Montoya M.D. MEDICAL IMAGING REPORT This report is preliminary unless electronic signature is present EXAM Head CT without contrast HISTORY Fell 1 hour ago in his room. Hit the forehead on the ground. Knot left side top of forehead with laceration left orbital area. TECHNIQUE This CT examination was performed with one or more of the following radiation dose reduction techniques: automatic exposure control, adjustment of mA and/or kV according to patient size, and iterative reconstruction. COMMENT Routine noncontrast head CT is reviewed. Comparison is from 12/17/2016. There is soft tissue swelling left forehead area with some irregularity of the skin consistent with laceration site. No radiopaque foreign body. No underlying calvarial fracture. There is no evidence for acute intracranial hemorrhage or extraaxial fluid collection. Ventricles are normal in size and configuration. There is no acute cortical infarct suspected. Gil-white junction is age appropriate. There is no intracranial mass effect. IMPRESSION 1. No evidence for acute intracranial injury. 2. Soft tissue swelling left forehead area consistent with history of trauma. No underlying calvarial fracture or radiopaque foreign body appreciated. 1. Dictated by... [facility] A Service [facility] RADIOLOGY TEXT RESULTS PATIENT: ALL NATHAN LOCATION: [facility] : 67 UNIT #: [id number] AGE: [address]: Mariah Montoya MD SEX: M ORDER DR: Makeda Zeng M.D. THIS IS AN ELECTRONICALLY VERIFIED REPORT Makeda Zeng M.D. at 03/18/2017 1:30 PM MALU/luciano TD: 03/18/2017 10:09 JOB #: [id number] MEDICAL IMAGING REPORT Page 1 of 1 COPY
--- NOTE | ~2017-03-11 | CO ---
Unit #: [id number] #: [id number] Patient: ALL NATHAN [id number] [address] [place], [place] [address] [id number] [place] MR#: [id number] NAME: ALL NATHAN ROOM: 561 Age: 51 Sex: M Admission Date: 03/11/2017 : 1965 Attending Physician: Mariah Montoya M.D. Primary Care Physician: Mariah Montoya M.D. Consultation Date: 03/12/2017 CONSULTATION REPORT REASON FOR CONSULTATION Diabetic ketoacidosis. HISTORY OF PRESENT ILLNESS This is a 51-year-old male with history of type 1 diabetes mellitus, controlled; history of poor compliance; history of amputation of the left and right big and second toe; peripheral neuropathy; opioid dependence, who presented to the emergency room not feeling well. He has not been eating over the last 2 to 3 months and has been losing lot of weight. On his arrival in the emergency room, his blood sugars were very high above 800. Additionally on his further labs, he was found to be hyponatremic and acute renal failure and admitted to the unit bed, started on IV fluids and insulin drip. I have been asked to see the patient for further management. REVIEW OF SYSTEMS 10-point review of system is completed, please see HPI. Otherwise unremarkable. PAST MEDICAL HISTORY Type 2 diabetes mellitus, polysubstance abuse, left eye blindness, peripheral neuropathy, right and left history of osteomyelitis with amputation of the toes. PAST SURGICAL HISTORY Splenectomy, corneal transplant, multiple foot surgeries. CURRENT MEDICATIONS List is reviewed. The patient is on insulin drip and IV fluids. ALLERGIES None. PHYSICAL EXAMINATION GENERAL: He looks cachectic, depressed, mildly hypotensive. VITAL SIGNS: Pulse is 93, blood pressure 96/68, afebrile. His BMI is 13. His weight is 101 pounds. HEENT: EOMI. Pupils are equal and reactive to light. NECK: Supple. CHEST: Good air entry. CVS: Regular rhythm. No murmurs. ABDOMEN: Soft, nontender. Bowel sounds positive. EXTREMITIES: No edema noted. He has amputation of the toes on the right and left foot. Unit #: [id number] #: [id number] Patient: NATHAN,ALL R NEUROLOGIC: Nonfocal. Moving all extremities. DIAGNOSTIC STUDIES LABORATORY RESULTS: Creatinine is 2.4, sodium 128, potassium 3.3, chloride 99, CO2 is 20. A1c is 14.5. ASSESSMENT 1. Diabetic ketoacidosis, this resolved. 2. Acute kidney injury, improving. 3. Hyponatremia, improving. 4. Hypokalemia. PLAN We will start the patient on Levemir 10 units subcutaneous, one dose now followed by 10 units daily. Discontinue insulin drip. Advance diet as tolerated to consistent carbs, NovoLog 3 to 4 units with meals plus supplemental insulin as needed. Accu-Cheks a.c. and h.s. Continue IV hydration. Continue to follow the patient for further management. Dictated by... Erasto Naylor/evangelistl TD: 03/13/2017 05:36 JOB #: [id number] CONSULTATION REPORT Page 1 of 1 X Giuliana Arroyo MD X CONSULTATION REPORT
[~2017-03-11 15:18] MED LIST: ACULAR10 ML OS; ALBUTEROL17 GM INH; AMARYL2 MG PO; ANTIDIARRHEAL2 MG PO; ASPIRIN81 M1 PO; ASPIRIN81 M2 PO; BACTRIM DS TABL1 TA1 PO; DAKIN'S MODIF1000 ML EXT; DIFLUCAN100 MG PO; ESCITALOPRAM OX10 MG PO; FLAGYL PO; FLEXERIL10 MG PO; GABAPENTIN300 MG PO; GLUCOPHAGE XR500 MG PO; HUMALOG100 U/ML SUBQ; HUMULIN N100 U/ML SQ; IBUPROFEN800 MG PO; K-DUR20 ME1 PO; KEFLEX500 MG PO; LANTUS100 UNITS/ SUBD; LASIX20 MG PO; LEVAQUIN PO; LEVAQUIN750 M1 PO; LEVEMIR SUBQ; LEVEMIR100 UNITS/ SUBQ; LIPITOR PO; LIPITOR20 MG PO; LISINOPRIL PO; LISINOPRIL2.5 MG PO; LOPID600 MG PO; LOPRESSOR PO; LORATADINE10 M1 PO; METFORMIN HCL1000 M1 PO; METFORMIN HCL500 M1 PO; METFORMIN PO; METHADONE HCL10 MG PO; METHADONE PO; MEVACOR PO; MULTI VITAMIN1 EACH PO; MULTIVITAMIN PO; NAPROSYN500 MG PO; NEURONTIN PO; NICOTINE T1 PATCH .2 TOP; NOVOLOG100 U/ML; NOVOLOG100 U/ML SUBQ; NOVOLOG100 UNITS/ SUBQ; PREDNISONE10 MG/DOSE PO; PRINCIPEN500 M1 PO; PRINIVIL5 MG PO; PYRIDIUM PO; RANITIDINE HCL300 MG PO; SANTYL15 G1 TOP; STERAPRED5 MG/DOSE1 PO; SULFATRIM 800-120 ML PO; TOBRAMYCIN OS; VANCOCIN HCL250 M2 PO; VICODIN 5/500 T1 TAB PO; VICODIN PO; VOLTAREN75 MG PO; ZOSYN INJ
[2017-03-11 16:48] LABS: ALBUMIN SERUM 2.3 g/dL (3.5-5.0); ALKALINE PHOSPHATASE 207 U/L (32-92); ALT (SGPT) 10 U/L (10-40); AST (SGOT) 8 U/L (10-42); BILIRUBIN,TOTAL 0.7 mg/dL (0.2-2.0); BLOOD UREA NITROGEN 100 mg/dL (9-23); CALCIUM SERUM 8.7 mg/dL (8.4-10.2); CARBON DIOXIDE 20 mmol/L (22-31); CHLORIDE 85 mmol/L (100-111); CREATININE SERUM 3.3 mg/dL (0.6-1.4); GLOM FILT RATE Estimated 20.6 mL/min (>60); PROTEIN TOTAL SERUM 7.1 g/dL (6.0-8.3)
[2017-03-11 17:12] LABS: ALCOHOL BLOOD <5 mg/dL (0); BILIRUBIN, DIRECT <0.1 mg/dL (0.0-0.2); BILIRUBIN,INDIRECT 0.6 mg/dL (0.0-0.9); GLUCOSE FASTING 863 mg/dL (70-110); SODIUM 123 mmol/L (135-145)
[2017-03-11 17:19] LABS: URINE SOURCE CLEAN CATCH
[2017-03-11 17:48] LABS: BASOPHIL# 0.1 X10e3 (0-0.3); BASOPHIL% 0.4 % (0-2.5); EOSINOPHIL% 0.1 % (0.0-7.0); HEMATOCRIT 33.3 % (38.0-50.0); HEMOGLOBIN 10.2 gm/dL (13.0-16.0); LYMPHOCYTE# 0.6 X10e3 (1.0-3.5); MEAN CELL VOLUME 85.2 FL (83-96); MEAN CORPUSCULAR HEMOGLOBIN 26.2 PG (28-34); MEAN CORPUSCULAR HGB CONC 30.8 g/dL (30-36); MEAN PLATELET VOLUME 8.6 FL (6.5-11.5); MONOCYTE# 0.5 X10e3 (0-1.0); MONOCYTE% 3.4 % (3.0-12.0); NEUTROPHIL# 13.6 X10e3 (1.5-7.1); NEUTROPHIL% 92.1 % (40-75); PLATELET COUNT 335 X10e3 (140-420); RED CELL DISTRIBUTION WIDTH 15.2 % (11.0-15.5); WHITE BLOOD COUNT 14.8 X10e3 (4.0-10.5)
[2017-03-11 17:51] LABS: URINE APPEARANCE CLOUDY; URINE BILIRUBIN NEG (NEG); URINE BLOOD 2+ (NEG); URINE COLOR YELLOW; URINE GLUCOSE >1000 MG/DL (NEG); URINE KETONE TRACE (NEG); URINE LEUKOCYTE ESTERASE 3+ (NEG); URINE NITRATE NEG (NEG); URINE PH 6.5 (5-8); URINE PROTEIN NEG (NEG); URINE SPECIFIC GRAVITY 1.014 (1.003-1.035); URINE UROBILINOGEN 0.2 MG/DL (NEG)
[2017-03-11 17:51] LABS: DIFF IND NO
[2017-03-11 17:55] LABS: CULTURE INDICATED? YES; URINE BACTERIA AUWI NEG (NEGATIVE); URINE SQUAMOUS EPITHELIAL CELL OCC /[HPF]; UWBCS1 AUWI INNUM (0-5)
[2017-03-11 18:12] LABS: AMPHETAMINE NEG (NEG); BARBITURATES NEG (NEG); BENZODIAZEPINES NEG (NEG); COCAINE NEG (NEG); MARIJUANA POS (NEG); OPIATES NEG (NEG); TRICYCLIC ANTIDEPRESSANTS NEG (NEG); U METHADONE NEG (NEG)
[2017-03-11 20:52] LABS: CK TOTAL 26 IU/L (36-174)
[2017-03-11 21:24] LABS: BUN/CREATININE RATIO 27.74; CALCIUM SERUM 8.2 mg/dL (8.4-10.2); CREATININE SERUM 3.1 mg/dL (0.6-1.4); GLOM FILT RATE Estimated 22.3 mL/min (>60); POTASSIUM 3.9 mmol/L (3.5-5.1)
[2017-03-12] MEDS ORDERED: LANTUS100 UNITS/ SUBQ (01:52)
[2017-03-12] MEDS ORDERED: LEVEMIR100 UNITS/ SUBQ (01:55)
[2017-03-12] MEDS ORDERED: AMOXICILLIN500 M1 PO (02:10)
[2017-03-12] MEDS ORDERED: ZESTRIL2.5 M1 PO (02:10)
[2017-03-12] MEDS ORDERED: OMEPRAZOLE40 M1 PO (02:11)
[2017-03-12] MEDS ORDERED: ONDANSETRON HCL8 MG PO (02:12)
[2017-03-12] MEDS ORDERED: CLARITHROMYCIN500 M2 PO (02:12)
[2017-03-12 03:07] LABS: BASOPHIL# 0.1 X10e3 (0-0.3); BASOPHIL% 0.7 % (0-2.5); EOSINOPHIL# 0.1 X10e3 (0-0.7); EOSINOPHIL% 0.5 % (0.0-7.0); HEMATOCRIT 29.4 % (38.0-50.0); HEMOGLOBIN 9.5 gm/dL (13.0-16.0); LYMPHOCYTE% 7.7 % (17.0-45.0); MEAN CORPUSCULAR HEMOGLOBIN 26.3 PG (28-34); MEAN CORPUSCULAR HGB CONC 32.2 g/dL (30-36); MEAN PLATELET VOLUME 8.1 FL (6.5-11.5); MONOCYTE# 0.3 X10e3 (0-1.0); MONOCYTE% 2.5 % (3.0-12.0); NEUTROPHIL# 11.5 X10e3 (1.5-7.1); NEUTROPHIL% 88.6 % (40-75); PLATELET COUNT 319 X10e3 (140-420); RED BLOOD COUNT 3.61 X10e (3.90-5.60); RED CELL DISTRIBUTION WIDTH 14.9 % (11.0-15.5)
[2017-03-12 03:10] LABS: MEAN CELL VOLUME 81.5 FL (83-96)
[2017-03-12 03:11] LABS: DIFF IND NO
[2017-03-12 03:24] LABS: CK TOTAL 19 IU/L (36-174)
[2017-03-12 03:52] LABS: ALBUMIN SERUM 2.1 g/dL (3.5-5.0); BETA HYDROXYBUTYRATE 0.11 MMOL/L (0.02-0.27); BILIRUBIN,TOTAL 0.4 mg/dL (0.2-2.0); CALCIUM SERUM 8.4 mg/dL (8.4-10.2); CREATININE SERUM 2.7 mg/dL (0.6-1.4); GLOM FILT RATE Estimated 26.3 mL/min (>60); MAGNESIUM 4.2 mg/dL (1.6-3.0); POTASSIUM 3.6 mmol/L (3.5-5.1); PROTEIN TOTAL SERUM 6.4 g/dL (6.0-8.3)
[2017-03-12 04:22] LABS: ARTERIAL BLD GAS O2 SATURATION 96.7 % (90.0-100.0); ARTERIAL BLOOD GAS CARBOXY HB 0.7 %sat (0.0-9.0); ARTERIAL BLOOD GAS HCO3 21.9 mmol/L; ARTERIAL BLOOD GAS MET HB 1.2 %sat (0.0-2.0); ARTERIAL BLOOD GAS PCO2 38.1 mmHg (35.0-45.0); ARTERIAL BLOOD GAS pH 7.367 (7.350-7.450)
[2017-03-12 04:32] LABS: ARTERIAL BLOOD GAS ALLEN TEST NORMAL; ARTERIAL BLOOD GAS ART SITE RIGHT RADIAL; ARTERIAL DRAW? YES
[2017-03-12 04:33] LABS: ARTERIAL BLOOD GAS DELIVERY ROOM AIR
[2017-03-12 10:08] LABS: BUN/CREATININE RATIO 31.2; CALCIUM SERUM 8.2 mg/dL (8.4-10.2); CREATININE SERUM 2.5 mg/dL (0.6-1.4); GLOM FILT RATE Estimated 28.9 mL/min (>60); POTASSIUM 3.8 mmol/L (3.5-5.1)
[2017-03-12 15:33] LABS: BUN/CREATININE RATIO 30.83; CALCIUM SERUM 8.1 mg/dL (8.4-10.2); CREATININE SERUM 2.4 mg/dL (0.6-1.4); GLOM FILT RATE Estimated 30.3 mL/min (>60); POTASSIUM 3.3 mmol/L (3.5-5.1)
[2017-03-13 03:02] LABS: BASOPHIL% 0.3 % (0-2.5); EOSINOPHIL# 0.1 X10e3 (0-0.7); EOSINOPHIL% 0.9 % (0.0-7.0); HEMATOCRIT 30.7 % (38.0-50.0); LYMPHOCYTE# 0.8 X10e3 (1.0-3.5); LYMPHOCYTE% 5.3 % (17.0-45.0); MEAN CORPUSCULAR HEMOGLOBIN 26.6 PG (28-34); MEAN CORPUSCULAR HGB CONC 32.4 g/dL (30-36); MONOCYTE# 0.4 X10e3 (0-1.0); MONOCYTE% 2.8 % (3.0-12.0); NEUTROPHIL% 90.7 % (40-75); PLATELET COUNT 320 X10e3 (140-420); RED BLOOD COUNT 3.74 X10e (3.90-5.60); WHITE BLOOD COUNT 15.4 X10e3 (4.0-10.5)
[2017-03-13 03:03] LABS: DIFF IND YES
[2017-03-13 03:22] LABS: ALBUMIN SERUM 2.1 g/dL (3.5-5.0); BILIRUBIN,TOTAL 0.2 mg/dL (0.2-2.0); BUN/CREATININE RATIO 28.26; CALCIUM SERUM 8.1 mg/dL (8.4-10.2); CREATININE SERUM 2.3 mg/dL (0.6-1.4); GLOM FILT RATE Estimated 31.9 mL/min (>60); MAGNESIUM 1.7 mg/dL (1.6-3.0); POTASSIUM 3.7 mmol/L (3.5-5.1); PROTEIN TOTAL SERUM 6.6 g/dL (6.0-8.3)
[2017-03-13 03:49] LABS: PLATELET ESTIMATE NORMAL (NORMAL); RBC NORMAL YES
[2017-03-14 09:21] LABS: HEMATOCRIT 30.4 % (38.0-50.0); HEMOGLOBIN 9.7 gm/dL (13.0-16.0); MEAN CELL VOLUME 81.4 FL (83-96); MEAN CORPUSCULAR HEMOGLOBIN 26.1 PG (28-34); MEAN CORPUSCULAR HGB CONC 32.1 g/dL (30-36); MEAN PLATELET VOLUME 7.7 FL (6.5-11.5); RED BLOOD COUNT 3.74 X10e (3.90-5.60); RED CELL DISTRIBUTION WIDTH 15.5 % (11.0-15.5); WHITE BLOOD COUNT 11.8 X10e3 (4.0-10.5)
[2017-03-14 09:53] LABS: BUN/CREATININE RATIO 25.23; CALCIUM SERUM 8.7 mg/dL (8.4-10.2); CREATININE SERUM 2.1 mg/dL (0.6-1.4); GLOM FILT RATE Estimated 35.6 mL/min (>60); MAGNESIUM 1.8 mg/dL (1.6-3.0); PHOSPHOROUS 2.8 mg/dL (2.5-4.6); POTASSIUM 3.9 mmol/L (3.5-5.1)
[2017-03-15 07:09] LABS: HEMATOCRIT 28.4 % (38.0-50.0); HEMOGLOBIN 9.2 gm/dL (13.0-16.0); MEAN CELL VOLUME 81.5 FL (83-96); MEAN CORPUSCULAR HEMOGLOBIN 26.4 PG (28-34); MEAN CORPUSCULAR HGB CONC 32.4 g/dL (30-36); MEAN PLATELET VOLUME 7.6 FL (6.5-11.5); RED BLOOD COUNT 3.48 X10e (3.90-5.60); RED CELL DISTRIBUTION WIDTH 15.3 % (11.0-15.5); WHITE BLOOD COUNT 11.2 X10e3 (4.0-10.5)
[2017-03-15 07:44] LABS: BUN/CREATININE RATIO 25.29; CREATININE SERUM 1.7 mg/dL (0.6-1.4); MAGNESIUM 2.1 mg/dL (1.6-3.0); PHOSPHOROUS 3.1 mg/dL (2.5-4.6); POTASSIUM 4.2 mmol/L (3.5-5.1)
[2017-03-16 08:24] LABS: HEMATOCRIT 30.7 % (38.0-50.0); HEMOGLOBIN 9.9 gm/dL (13.0-16.0); MEAN CELL VOLUME 81.6 FL (83-96); MEAN CORPUSCULAR HEMOGLOBIN 26.4 PG (28-34); MEAN CORPUSCULAR HGB CONC 32.4 g/dL (30-36); MEAN PLATELET VOLUME 7.4 FL (6.5-11.5); RED BLOOD COUNT 3.76 X10e (3.90-5.60); RED CELL DISTRIBUTION WIDTH 15.1 % (11.0-15.5); WHITE BLOOD COUNT 11.2 X10e3 (4.0-10.5)
[2017-03-16 08:49] LABS: BUN/CREATININE RATIO 23.75; CALCIUM SERUM 8.5 mg/dL (8.4-10.2); CREATININE SERUM 1.6 mg/dL (0.6-1.4); GLOM FILT RATE Estimated 49.5 mL/min (>60); POTASSIUM 4.1 mmol/L (3.5-5.1)
[2017-03-17 07:24] LABS: HEMATOCRIT 27.9 % (38.0-50.0); HEMOGLOBIN 9.1 gm/dL (13.0-16.0); MEAN CELL VOLUME 82.4 FL (83-96); MEAN CORPUSCULAR HGB CONC 32.7 g/dL (30-36); MEAN PLATELET VOLUME 7.4 FL (6.5-11.5); RED BLOOD COUNT 3.39 X10e (3.90-5.60); RED CELL DISTRIBUTION WIDTH 15.3 % (11.0-15.5)
[2017-03-17 08:04] LABS: BUN/CREATININE RATIO 25.33; CREATININE SERUM 1.5 mg/dL (0.6-1.4); GLOM FILT RATE Estimated 53.5 mL/min (>60); POTASSIUM 4.5 mmol/L (3.5-5.1)
[2017-03-18 05:54] LABS: BUN/CREATININE RATIO 27.33; CALCIUM SERUM 8.2 mg/dL (8.4-10.2); CREATININE SERUM 1.5 mg/dL (0.6-1.4); GLOM FILT RATE Estimated 53.5 mL/min (>60); POTASSIUM 4.8 mmol/L (3.5-5.1)
[2017-03-19 06:05] LABS: HEMATOCRIT 28.5 % (38.0-50.0); HEMOGLOBIN 9.2 gm/dL (13.0-16.0); MEAN CELL VOLUME 82.7 FL (83-96); MEAN CORPUSCULAR HEMOGLOBIN 26.6 PG (28-34); MEAN CORPUSCULAR HGB CONC 32.1 g/dL (30-36); RED BLOOD COUNT 3.45 X10e (3.90-5.60); RED CELL DISTRIBUTION WIDTH 15.3 % (11.0-15.5); WHITE BLOOD COUNT 10.6 X10e3 (4.0-10.5)
[2017-03-19 06:45] LABS: BUN/CREATININE RATIO 27.14; CALCIUM SERUM 8.8 mg/dL (8.4-10.2); CREATININE SERUM 1.4 mg/dL (0.6-1.4); GLOM FILT RATE Estimated 58.2 mL/min (>60); POTASSIUM 4.4 mmol/L (3.5-5.1)
[2017-03-20 05:57] LABS: HEMATOCRIT 29.5 % (38.0-50.0); HEMOGLOBIN 9.3 gm/dL (13.0-16.0); MEAN CELL VOLUME 83.2 FL (83-96); MEAN CORPUSCULAR HEMOGLOBIN 26.2 PG (28-34); MEAN CORPUSCULAR HGB CONC 31.5 g/dL (30-36); MEAN PLATELET VOLUME 7.1 FL (6.5-11.5); RED BLOOD COUNT 3.55 X10e (3.90-5.60); RED CELL DISTRIBUTION WIDTH 15.5 % (11.0-15.5); WHITE BLOOD COUNT 12.3 X10e3 (4.0-10.5)
[2017-03-20 06:48] LABS: ALBUMIN SERUM 2.4 g/dL (3.5-5.0); BILIRUBIN,TOTAL 0.5 mg/dL (0.2-2.0); BUN/CREATININE RATIO 22.66; CALCIUM SERUM 8.9 mg/dL (8.4-10.2); CREATININE SERUM 1.5 mg/dL (0.6-1.4); GLOM FILT RATE Estimated 53.5 mL/min (>60); MAGNESIUM 1.8 mg/dL (1.6-3.0); POTASSIUM 4.6 mmol/L (3.5-5.1); PROTEIN TOTAL SERUM 6.9 g/dL (6.0-8.3)
== END 2017-03-20 18:40 | DRG 682 ==
LOC: CED 15:18 → CEDOF 18:08 → CICCU2 22:38 → C5B 03-12 22:40 → C2A 03-17 18:32
PROVIDERS: Emergency Medicine; Hospitalist; Internal Medicine; Internal Medicine Nephrology; Nurse Practitioner Family; Physician Assistant Medical
PROC: 0DH63UZ Insertion of Feeding Device into Stomach, Percutaneous Approach (ICD-10-PCS; principal; 2017-03-19 14:00)
PROC: 0DJ08ZZ Inspection of Upper Intestinal Tract, Via Natural or Artificial Opening Endoscopic (ICD-10-PCS; 2017-03-19 14:00)
DX: N17.9 Acute kidney failure, unspecified (principal); E13.10 Other specified diabetes mellitus with ketoacidosis without coma; E43 Unspecified severe protein-calorie malnutrition; A04.7 Enterocolitis due to Clostridium difficile; R13.10 Dysphagia, unspecified; B37.81 Candidal esophagitis; E86.0 Dehydration; E87.1 Hypo-osmolality and hyponatremia; Z68.1 Body mass index [BMI] 19.9 or less, adult; G62.9 Polyneuropathy, unspecified; I10 Essential (primary) hypertension; E78.5 Hyperlipidemia, unspecified; G89.4 Chronic pain syndrome; Z89.422 Acquired absence of other left toe(s); Z89.421 Acquired absence of other right toe(s); Z79.4 Long term (current) use of insulin; D63.8 Anemia in other chronic diseases classified elsewhere; H54.42 Blindness, left eye, normal vision right eye; K21.9 Gastro-esophageal reflux disease without esophagitis; R11.2 Nausea with vomiting, unspecified; Z94.7 Corneal transplant status; E87.6 Hypokalemia; R94.31 Abnormal electrocardiogram [ECG] [EKG]
CPT/HCPCS: 36600; 70450; 71010; 74000; 74230; 80048; 80053; 80076; 80307; 81003; 82010; 82140; 82150; 82550; 82803; 82947; 83036; 83605; 83690; 83735; 84100; 84132; 84443; 84484; 85025; 85027; 87040; 87086; 87493; 87806; 89190; 92610; 92611; 93005; 93308; 96361; 96374; 97110; 97116; 97163; 97166; 97530; 97535; 99291; G0480; J0690; J1170; J1450; J1815; J2405; J3475

== ENCOUNTER 2017-04-27 13:28 | Inpatient (IN) | payer OTHER ==
--- NOTE | ~2017-04-27 | MAL ---
[facility] Therapy DATE: 04/28/17 Patient: ALL Mahoney NATHAN Physician: GEE Address: [address] Room/Bed: [address] [place] [address], Zip: [place] [address] Admit Date: 04/27/17 Date of : [birth year] Height: Weight: 104 47.4 PHYSICAL MALNUTRITION ASSESSMENT Energy Intake, Chronic Illness Moderately reduced: <75% needs for >/=1 month Severely reduced: </=50% needs for >/=1 month Energy Intake Comment: PT REPORTS CONSUMING 2 MEALS DAILY AT HOME Weight Loss, Chronic Illness Severe: >20% past 1 year Weight Loss, Comment: PT REPORTS LOSING ~150# PAST 2 YEARS. NOTES UBW IS ~260#. CURRENT WEIGHT IS 104# Physical Findings Body Fat and Muscle Mass Moderate: (suggested) some loss of subqutaneous fat and/or muscle mass Severe: (obvious) significant muscle wasting and/or loss of subcutaneous fat Physical Findings Comment: PER RD OBSERVATION, PT NOTED TO HAVE HOLLOW/SCOOPING DEPRESSED TEMPORTAL, PROTRUDING AND PROMINENT SHOULDERS, CLAVICLE AND SCAPULA. MINIMAL/NO MUSCLE DEFINITION TO BICEPS, TRICEPS AND CALVES. PT ALSO NOTED TO HAVE PRONOUNCED, HOLLOW, DEPRESSED EYES, PROMINENT AND WELL-DEFINED RIBS WELL DRY HAIR, NAILS AND MOUTH. Malnutrition Survey Results: MOD/SEVERELY COMPROMISED Malnutrition Etiology Summary: Chronic illness moderate Chronic illness severe Malnutrition Survey Comment: SEE RD ASSESSMENT ON 04/28/17 Respectfully, MIHIR BLOOM MS, RD, LD Food and Nutritional Services [facility] cc: client file
--- NOTE | ~2017-04-27 | CO ---
Unit #: [id number] #: [id number] Patient: MOOKIE NATHAN [id number] [address] [place], [place] [address] [id number] I MR#: [id number] NAME: MOOKIE NATHAN ROOM: 218 Age: 52 Sex: M Admission Date: 04/27/2017 : 1965 Attending Physician: Steve Ashford M.D. Primary Care Physician: Mariah Montoya M.D. Consultation Date: 05/04/2017 CONSULTATION REPORT REASON FOR CONSULTATION Followup. DISCUSSION Mr. Mookie Nathan is a 52-year-old male, seen on room 218, bed 1 on 05/04/2017. The patient was admitted with UTI, compliant, cooperative, still reporting having pain, anxious, nervous, sad, depressed and reports sleeping better, but still having above-mentioned symptom. Vital signs; temperature 98.7, pulse 92, respirations 20, blood pressure 125/80, and oxygen saturation 98%. The patient currently denied any suicidal or homicidal ideation. Denied any psychotic symptom. The patient's hemoglobin 7.0. REVIEW OF SYSTEMS Complete review of system unremarkable. PHYSICAL EXAMINATION VITAL SIGNS: Please see above. MENTAL STATUS EXAMINATION General appearance; the patient is thin built and dressed casually, lying in bed somewhat uncomfortable; reported pain, anxious, and nervous. Attention span and concentration, fair. Speech, regular rate and somewhat circumstantial. Oriented in time, place, and person. Mood and affect, sad and dysphoric. Thought process, coherent. Thought content, the patient denied any thoughts of harming self or others, but sad, depressed, irritable. Denied any psychotic symptom. Recent and remote memory, fair. Language, intact. Fund of knowledge, fair. Insight and judgment, fair to slightly impaired. DIAGNOSIS Psychiatric: Major depressive disorder, recurrent, severe, F33.2. ASSESSMENT/PLAN 1. Supportive psychotherapy and psychoeducation provided to the patient. 2. Educated about benefits and side effects of medication and course and prognosis of illness. 3. If needed, consider further adjustment of medication. Please feel free to call if any questions, telephone #[phone]. Dictated by... Rl Bates M.D. Unit #: [id number] #: [id number] Patient: MOOKIE NATHAN SERG/aleksandr TD: 05/04/2017 22:57 JOB #: [id number] CONSULTATION REPORT Page 1 of 1 X Rl Bates MD CONSULTATION REPORT
--- NOTE | ~2017-04-27 | CO ---
Unit #: [id number] #: [id number] Patient: ALL NATHAN [id number] [address] [address] [id number] I MR#: [id number] NAME: ALL NATHAN ROOM: [facility] Age: 52 Sex: M Admission Date: 04/27/2017 : 1965 Attending Physician: Steve Ashford M.D. Primary Care Physician: Mariah Montoya M.D. CONSULTATION REPORT REASON FOR CONSULTATION Respiratory failure. HISTORY OF PRESENT ILLNESS The patient is a 52-year-old male discharge in February for candidiasis esophagitis and c-diff colitis. He had a syncope workup and was discharged home. He was found to be hyperglycemic and his blood sugar was over 500. The patient was admitted with the impression of nondiabetic ketoacidosis, hyperglycemia, urinary tract infection, insulin dependence and was being treated on the floor. He became hypoxic and was transferred to the ICU. Chest x-ray showed bilateral lower lobe infiltrates, consistent with pneumonia. I am seeing him at the bedside. He currently is slightly lethargic. He denies any headache or blurry vision. No chest pain. He is requiring high oxygen flow. PAST MEDICAL HISTORY 1. Diabetic ketoacidosis. 2. Insulin dependence. 3. Right lower extremity osteomyelitis. 4. Left eye blindness. 5. Opioid addiction. 6. Gastroesophageal reflux disease. 7. Dyslipidemia. 8. Candidiasis esophagitis. 9. C-diff colitis. 10. Syncopal episode. 11. Peripheral neuropathy. 12. Splenectomy. 13. Corneal transplant. 14. Multiple incisions and drainage. 15. Right foot surgery. 16. Left foot surgery. SOCIAL HISTORY Smoker. No alcohol. No drug abuse. ALLERGIES No known drug allergies. HOME MEDICATIONS 1. Tylenol. 2. Pepcid. 3. Neurontin. 4. Levemir. Unit #: [id number] #: [id number] Patient: ALL NATHAN 5. Flagyl. 6. Zofran. 7. Levophed. 8. Zosyn. 9. Vancomycin. PHYSICAL EXAMINATION VITALS: Current temperature 97, pulse 103, blood pressure 114/77. LUNGS: Bilateral air entry. Bilateral mild rhonchi. HEART: S1 plus S2. ABDOMEN: Nontender, soft, bowel sounds positive. EXTREMITIES: No edema. SKIN: No rashes or ulcers. LYMPH: No lymphadenopathy. NEUROLOGIC: He is awake and alert. DIAGNOSTIC STUDIES LABORATORY: Blood gas pH 7.38, pCO2 37, pO2 50, sodium 129, potassium 4.6, bicarb 20, white blood cell count 28, hemoglobin 7, hematocrit 25, platelets 503. Blood cultures so far are negative. ASSESSMENT 1. Acute hypoxic respiratory failure. 2. Bilateral pneumonia. 3. Hyperglycemia. 4. Acute on chronic kidney disease. 5. Hyponatremia. 6. Chronic obstructive pulmonary disease. 7. Critically ill patient. PLAN Admit the patient to the intensive care unit. Continue oxygen, bronchodilator. Broad spectrum IV antibiotics. Do bronchoscopy today. Control sugars. Repeat blood gas. The patient is critically ill. Will continue to monitor. Continue pressors. Wean as tolerated. Please see orders for detailed plan. Thank you very much for this consultation. Dictated by... Erasto Paulson/anil TD: 04/30/2017 11:49 JOB #: [id number] Unit #: [id number] #: [id number] Patient: ALL NATHAN CONSULTATION REPORT Page 1 of 1 X Josue Handy MD CONSULTATION REPORT
--- NOTE | ~2017-04-27 | A ---
[facility] Nutrition Therapy DATE: 05/04/17 Patient: ALL Mahoney JAC Physician: GEE Address: [address] [place] [address] Room/Bed: [address] [place] [address], Zip: [place] [address] Admit Date: 04/27/17 Date of : [birth year] Height: 6 0 Weight: 134 61 NUTRITIONAL ASSESSMENT: REASON: PMH: Anthropometrics: Labs: Meds: I/O & Bowel function: Skin Integrity: Estimated Nutrition Needs: Assessment: Dx: Intervention: Monitoring, Evaluation and Goals: Recommendations: Respectfully, FREDERICK WILKINS RD, LD Food and Nutritional Services [facility] cc: client file
--- NOTE | ~2017-04-27 | A ---
[facility] Nutrition Therapy DATE: 04/28/17 Patient: ALL Mahoney NATHAN Physician: GEE Address: [address] Room/Bed: [address] [place] [address], Zip: [place] [address] Admit Date: 04/27/17 Date of : [birth year] Height: Weight: 104 47.4 NUTRITIONAL ASSESSMENT: REASON: PT SEEN FOR LOW BMI + CONSULT PT IS 52 Y.O. MALE ADMITTED FOR UTI PMH: NO RECENT H&P. PER PAST NOTES: T1DM, HTN, HLD, GERD, RESP FAILURE, ESOPHAGITIS, COLITIS, ETOH ABUSE, POLYSUBSTANCE ABUSE, BLINDNESS (L) EYE, NONCOMPLIANT, NEUROPATHY, DYSPHAGIA S/P PEG PLACEMENT (DOES NOT USE PEG TUBE) Anthropometrics: 6'0", WT: 104# (47 KG), BMI: 14.1, 58%IBW Labs: GLU: 531, BUN: 57, CREAT: 2.3, ALB: 2.2, NA+:130, GFR: 31.7 Meds: LEVEMIR, PEPCID, NOVOLOG, ZOFRAN I/O & Bowel function: 360/1000 Skin Integrity: STAGE 2 PRESSURE ULCER COCCYX (NOTED IN FEBRUARY 2017) Estimated Nutrition Needs: [id number] KCAL (35-40 KCAL/KG BW) 56-85 G PRO (1.2-1.8 G PRO/KG BW) FLUIDS CONSISENT W/KCAL NEEDS OR MANAGE PER MD Assessment: CHART REVIEWED AND EVENTS NOTED. PT SEEN FOR LOW BMI + CONSULT. PT REPORTS GOOD PO INTAKE AND APPETITE, NO C/O N/V BUT NOTING CHRONIC DIARRHEA "FOR WEEKS". PT ADDS HE EATS 2 MEALS DAILY AT HOME + SNACKS. PT REPORTS UBW IS ~260#, NOTING LOSING ~150# PAST 2 YEARS. OF NOTE, PT HAS PEG TUBE BUT DOES NOT USE IT AT HOME. PT ALSO NOTES THAT HIS PASSPORT WILL NOT COVER GLUCERNA SHAKES. RD WILL NOTIFY CAREER ADVISOR/PROVIDE PT WITH GLUCERNA COUPONS. THIS RD ENCOURAGED ADEQUATE KCAL AND PROTEIN INTAKE FOR WEIGHT GAIN, PT AGREED TO GLUCERNA SHAKES TID W/MEALS WHILE IN-HOUSE. PT REPORTED NO DIET QUESTIONS AT THIS TIME. RD TO FOLLOW. SEE RECOMMENDATIONS BELOW. Dx: UNDERWEIGHT R/T CHRONIC DIARRHEA, MALABSORPTION AEB LOW BMI OF 14.1, 58% IBW, WEIGHT LOSS NOTED PAST 2 YEARS. Intervention: 1. CC+HH DIET 2. RD CONSULT 3. GLUCERNA SHAKES TID 4. ORDER 75 G CARBS PER MEAL Monitoring, Evaluation and Goals: 1. ORAL INTAKE; CONSUME >50% OF MEALS AND SUPPLEMENTS W/NO C/O N/V/D 2. WEIGHTS; PROMOTE GRADUAL WEIGHT GAIN TOWARDS HEALTHY BMI [facility] Nutrition Therapy DATE: 04/28/17 Patient: ALL NATHAN Physician: GEE Address: [address] Room/Bed: [address] [place] [address], Zip: [place] [address] Admit Date: 04/27/17 Date of : 67 Height: Weight: 104 47.4 3. LABS; WNL: GLU 4. GI; PROMOTE REGULAR GI FUNCTION MONITOR: -PO INTAKE/APPETITE -WEIGHTS -SUPPLEMENT INTAKE Recommendations: 1. PLEASE ADD 75 GRAMS CARBS PER MEAL TO CURRENT DIET ORDER ABOVE 2. PLEASE ORDER STRAW GLUCERNA SHAKES TID W/MEALS 3. ENCOURAGE ADEQUATE KCAL, PROTEIN AND FLUID INTAKE 2' PT UNDERWEIGHT 4. IF PO INTAKE <50%, RECOMMEND TO BEGIN ALTERNATIVE NUTRITION SUPPORT OF GLUCERNA 1.5 @ 20 ML/HR, ADVANCE 10 ML q 4 HOURS TO GOAL RATE OF 45 ML/HR -PROVIDES 1620 KCAL, 89 G PRO, 821 ML FREE H20 ADD FREE H20 FLUSHES OF 200 ML QID TO MEET PT'S CURRENT ESTIMATED FLUID NEEDS OR MANAGE PER MD RD WILL F/U PER PROTOCOL PT IS MOD/SEVERELY COMPROMISED Respectfully, MIHIR BLOOM MS, RD, LD Food and Nutritional Services [facility] cc: client file
--- NOTE | ~2017-04-27 | CO ---
Unit #: [id number] #: [id number] Patient: ALL NATHAN [id number] [address] [place], [place] [address] [id number] MR#: [id number] NAME: ALL NATHAN ROOM: 218 Age: 52 Sex: M Admission Date: 04/27/2017 : 1965 Attending Physician: Steve Ashford M.D. Primary Care Physician: Mariah Montoya M.D. Consultation Date: 05/01/2017 CONSULTATION REPORT REASON FOR CONSULTATION Acute on chronic kidney disease. HISTORY OF PRESENT ILLNESS Mr. Nathan is a 52-year-old male with a history of poorly controlled diabetes, who we were asked to see again today for acute kidney injury. I actually saw him during his February admission, when he was admitted for complications with c-difficile colitis as well as diabetic ketoacidosis. This admission was prompted by an elevated blood sugar at home, found by home health nurse, and he was sent to the emergency room. The patient's sugars were treated initially by endocrinology. His hospital course has been complicated by aspiration pneumonia and some respiratory distress and hypotension. We were asked to get involved today because of a higher creatinine. Of note, his creatinine was also above his previous baseline at the time of this admission. The patient is now getting tube feeds successfully. Apparently he was eating regularly at home despite his history of aspiration issues. He denies any chest discomfort or shortness of breath. He denies any urinary complaints. No swelling. PAST MEDICAL HISTORY 1. Poorly controlled diabetes. 2. Left eye blindness. 3. Neuropathy. 4. Osteomyelitis. 5. Gastroesophageal reflux disease. 6. Hyperlipidemia. 7. Candidal esophagitis. 8. Polysubstance abuse. 9. Tobacco abuse. PAST SURGICAL HISTORY 1. Splenectomy. 2. Corneal transplant. 3. Several toes removed from the feet. 4. G tube placement. SOCIAL HISTORY The patient denies any illegal drug use for now, going on four months. He previously had been using amphetamines and heroin. He does smoke several cigarettes per day and some marijuana. He denies any alcohol abuse. FAMILY HISTORY No family history of kidney disease or dialysis. He did tell me last admission that there was a family history of diabetes. Unit #: [id number] #: [id number] Patient: ALL NATHAN ALLERGIES No known drug allergies. CURRENT MEDICATIONS 1. Glucerna per PEG tube. 2. Vancomycin per pharmacy dosing. 3. Neurontin 300 mg t.i.d. 4. Pepcid 20 mg daily. 5. Combivent inhaler. 6. Levemir insulin 10 units daily with sliding scale. 7. Normal saline at 100 cc an hour. 8. Levophed p.r.n. 9. Zosyn 3.375 g IV q.8 h. 10. Flagyl 500 mg IV q.8 h. and p.r.n. REVIEW OF SYSTEMS A complete 12-point review of systems was completed with the above findings. In addition, he has not had any fevers or chills. No nosebleed, sore throat or earache. No chest pain or palpitations. He has had some cough. No hemoptysis reported. No hematemesis. No report of bright red blood rectum or melena. No reported hematuria. No rashes or itching. No flank pain. No night sweats or hot flashes. No intolerance to heat or cold. No bleeding issues. The patient has voiced some depression symptoms. Unless otherwise indicated, the review of systems was negative. PHYSICAL EXAMINATION GENERAL: This is a somewhat lethargic 52-year-old male who appears older than stated age. He is arousable, in no acute distress. VITALS: Afebrile, pulse 92, respiratory rate 15, blood pressure 111/48. Blood pressure did get as low as 85/56 yesterday. Ins and outs are positive by 929 ml. HEENT: Head is atraumatic, normocephalic. Eyes show pale conjunctivae but no scleral icterus. No nasal drainage or nosebleed. Oropharynx is dry. NECK: No jugular venous distension. No rigidity. LUNGS: Scattered rhonchi present without wheezing. Breathing is nonlabored. HEART: Regular rate and rhythm with no murmur or rub appreciated. ABDOMEN: Soft with midline incision present. G tube is in place. Nontender. Bowel sounds are present. EXTREMITIES: No lower extremity pitting edema noted. SKIN: Dry without rashes. MUSCULOSKELETAL: No CVA tenderness to palpation. NEUROLOGIC: Cranial nerves are grossly intact with the exception of his clouded left eye and blindness. No gross motor deficits. LYMPH: There is no neck or cervical lymphadenopathy. PSYCHIATRIC: Mood appears depressed. Affect is somewhat flat. DIAGNOSTIC STUDIES LABORATORY: Blood cultures are negative to this point. CBC today, white blood cell count 25,000, hemoglobin 7.6, platelet count 476, with a left shift. Chemistry this morning, sodium 129, potassium 4.3, chloride 104, bicarb 15, glucose 229, BUN 52, creatinine up to 2.8, procalcitonin was 6.9. Vancomycin level this morning was 11.2. ABG showed a pH of 7.27, pCO2 35, pO2 124, bicarb 16. Yesterday's creatinine was 2.1 with a lactic acid of 1.6. Hemoglobin A1c on admission was 13. Urine culture grew some Unit #: [id number] #: [id number] Patient: ALL NATHAN yeast on admission. Urinalysis on admission did have numerous red and white blood cells and was protein positive 1+. Overall, it looks like his baseline creatinine is 1.5 from 03/20/2017 and is increased from 2.1 to 2.8 today. ASSESSMENT/PLAN 1. Acute kidney injury on chronic kidney disease, stage 3. The patient certainly has underlying chronic kidney disease due to a history of very poorly controlled diabetes and repeated acute kidney injury episodes. His hemoglobin A1c have been very high over the last several years, with readings as high as 17.9. His acute kidney injury may be more related to his hypotension and infection issues with aspiration pneumonia. Blood pressure support is underway with saline and I will also write for some p.r.n. saline boluses. He has Levophed as needed for it as well. We will need to watch vancomycin dosing closely. Labs will be ordered for the morning and I will be sending off urine studies today. 2. Hypotension. This has improved, but he does have p.r.n. medicines ordered as needed. 3. Metabolic acidosis. We will be using some sodium bicarbonate replacement, both IV and p.o. 4. Hyponatremia. This corrects for his high sugars. 5. History of c-diff on Flagyl. I will start some probiotics. 6. Pneumonia. ID is seeing the patient. Again, we do need to watch vancomycin dosing closely with his renal failure. 7. History of aspiration and candidal esophagitis. Gastroenterology has been consulted. I would like to thank Dr. Ashford for this consult and the opportunity to participate in the evaluation and care of Mr. Nathan. Dictated by... Tushar Salazar Jr., M.D. CALEB/anil TD: 05/02/2017 13:39 JOB #: [id number] CONSULTATION REPORT Page 1 of 1 X Tushar Salazar MD X CONSULTATION REPORT
--- NOTE | ~2017-04-27 | CO ---
Unit #: [id number] #: [id number] Patient: ALL NATHAN [id number] [facility]. [address] [place], [place] [address] [id number] [place] MR#: [id number] NAME: ALL NATHAN. ROOM: [facility] Age: 52 Sex: M Admission Date: 04/27/2017 : 1965 Attending Physician: Steve Ashford M.D. Primary Care Physician: Mariah Montoya M.D. Consultation Date: 04/28/2017 CONSULTATION REPORT REASON FOR CONSULTATION Management of diabetes mellitus. HISTORY OF PRESENT ILLNESS This is a 52-year-old gentleman who has a history of type 1 diabetes mellitus with complication of peripheral neuropathy, amputation of the toes on both sides, history of opioid dependence, poor compliance, recurrent C diff, history of DKA in the past who presented to the emergency room with generalized weakness. On his labs, his blood glucose was over 500. He was also found to be in acute renal failure and possibly a UTI. I have been asked to see the patient for management of diabetes mellitus. PAST MEDICAL HISTORY History of type 1 diabetes mellitus, poorly controlled; history of DKA in the past; history of right lower extremity osteomyelitis; opioid dependence and addiction; left eye blindness; Roro esophagitis; history of C diff colitis; peripheral neuropathy. PAST SURGICAL HISTORY History of splenectomy, corneal transplant x2, multiple I and D's, history of amputations in the right and left foot. HOME MEDICATIONS Levemir 10 units subcu daily, gabapentin, Pepcid, Flagyl, Zofran. ALLERGIES No known drug allergies. SOCIAL HISTORY Continues to smoke, opioid dependence, history of polysubstance abuse in the past. FAMILY HISTORY Noncontributory. REVIEW OF SYSTEMS Ten-point review of system is completed, remarkable for diarrhea, weakness. No nausea or vomiting. No fever or chills. No chest pains. No shortness of air. Rest of the 12-point review of system is unremarkable. PHYSICAL EXAMINATION GENERAL: He is a very lean, thin, malnourished. Unit #: [id number] #: [id number] Patient: ALL NATHAN VITAL SIGNS: Temperature 98.2, pulse is 92, blood pressure 120/80. HEENT: EOMI. Pupils equally reactive to light. NECK: Supple. No thyromegaly noted. CHEST: Good air entry. CVS: Regular rhythm. No murmurs. ABDOMEN: Soft and nontender. Bowel sounds positive. EXTREMITIES: Does have amputation of toes in both feet. NEUROLOGIC: Nonfocal. Moving all extremities. DIAGNOSTIC STUDIES LABORATORY RESULTS: On admission, glucose was above 500, creatinine of 2.3, sodium of 130. A1c is 14.5. ASSESSMENT 1. Type 1 diabetes mellitus, poorly controlled. He has poor compliance. 2. History of recurrent hypoglycemia in the past. 3. History of diabetic ketoacidosis. 4. Acute kidney injury, improving. PLAN Last night, the patient has received Levemir 10 units and also received 10 units of Levemir this morning. The patient's blood sugars have come down. His last blood sugar this afternoon dropped to 53, which has come up again to about 150 after meals and dextrose infusion. I am going to change the patient's Levemir to 8 units in the morning and 4 units at bedtime. He is still on NovoLog 2 units with meals. Cover with supplemental low-dose supplement sliding scale as needed. Consistent carb diet 60 g with meals and 15 g carbohydrate snack at bedtime. Blood sugars, Accu-Cheks and a.c. and h.s. We will continue to follow for further management. Dictated by... Erasto Naylor/aleksandr TD: 04/30/2017 02:48 JOB #: [id number] CONSULTATION REPORT Page 1 of 1 X Giuliana Arroyo MD CONSULTATION REPORT
--- NOTE | ~2017-04-27 | CO ---
Unit #: [id number] #: [id number] Patient: MOOKIE NATHAN [id number] [facility] [address] [facility]. [place], [place] [address] [id number] I MR#: [id number] NAME: MOOKIE NATHAN ROOM: 218 Age: 52 Sex: M Admission Date: 04/27/2017 : 1965 Attending Physician: Steve Ashford M.D. Primary Care Physician: Mariah Montoya M.D. Consultation Date: 05/02/2017 CONSULTATION REPORT REASON FOR CONSULTATION Depression, confusion, polysubstance abuse. HISTORY OF PRESENT ILLNESS Mr. Mookie Nathan is a 52-year-old white male seen in room 218, bed 1 on 05/02/2017 at [facility]. The patient is thinly built, dressed in hospital attire, lying in a propped-up position, receiving IV fluid. Patient seems anxious, nervous, sad, depressed. Patient reported he has a history of opiate addiction. Denied any withdrawal symptoms. Also reported feeling sad and depressed but denied any suicidal or homicidal ideation. Denied any psychotic symptoms. Patient reports getting better, still having problems with anxiety. PAST PSYCHIATRIC HISTORY Remarkable for history of opiate addiction. Denies any use of any alcohol. No history of any inpatient psychiatric treatment. MEDICATIONS The patient is on Pepcid, gabapentin, Levemir, Flagyl and Zofran. MEDICAL HISTORY Remarkable for diabetic ketoacidosis, insulin-dependent diabetes, right lower extremity osteomyelitis, left eye blindness, opiate addiction, gastroesophageal reflux disease, dyslipidemia, dysphagia, Roro esophagitis, recent C. diff. colitis, syncopal episode, peripheral neuropathy. ALLERGIES No known drug allergies. FAMILY HISTORY/SOCIAL HISTORY Patient has poor family support. No history of abuse. History of opiate abuse and depression. REVIEW OF SYSTEMS A complete review of systems is unremarkable. MENTAL STATUS EXAMINATION Vital signs - 98.7; 96; 18; 150/80, oxygen saturation 99%. General appearance - Patient is thinly built, lying comfortably in a propped-up position. Attention span, concentration - Fair. Speech - Regular rate, coherent. Oriented to time, place and person. Mood and affect - Sad, dysphoric, anxious. Thought process - Coherent. Thought content - The patient denied any thoughts of harming self or others or any Unit #: [id number] #: [id number] Patient: MOOKIE NATHAN hallucinations. Recent and remote memory - Fair. Language - Intact. Fund of knowledge - Fair. Insight and judgment - Fair to slightly impaired. DIAGNOSIS 1. PSYCHIATRIC: Major depressive disorder, recurrent, severe, F33.2; opiate disorder, moderate to severe, F11.20. 2. SECONDARY DIAGNOSIS: Deferred 3. MEDICAL DIAGNOSIS: Please refer to H and P. 4. STRESSOR: Psychosocial stressors. ASSESSMENT AND PLAN 1. Supportive psychotherapy and psychoeducation provided to the patient. 2. Educated about benefits and side effects of medication and course and prognosis of illness. 3. Advised to continue with current treatment. Patient's urine drug screen was positive for marijuana. Patient was advised to follow up in outpatient program, [facility] program at [facility] upon discharge. 4. Plan to consider medication, such as Cymbalta 30 mg daily, to help with depression, as well as for neuropathy. We will continue to follow. If needed, consider further adjustment of medication. Please feel free to call with any questions, telephone number . Dictated by... Erasto Srivastava/melissa TD: 05/03/2017 07:38 JOB #: [id number] CONSULTATION REPORT Page 1 of 1 X Rl Bates MD X CONSULTATION REPORT
--- NOTE | ~2017-04-27 | OR ---
Unit #: [id number] #: [id number] Patient: ALL NATHAN [id number] [address] [address] [id number] I MR#: [id number] NAME: ALL NATHAN ROOM: [facility] Date of Procedure: 04/30/2017 Admission Date: 04/27/2017 Surgeon: Josue Handy M.D. : 1965 Attending Physician: Steve Ashford M.D. Primary Care Physician: Mariah Montoya M.D. PROCEDURE OPERATIVE NOTE PROCEDURE PERFORMED Diagnostic bronchoscopy, bronchoalveolar lavage. INDICATION FOR PROCEDURE Pneumonia. PREPROCEDURE DIAGNOSIS Pneumonia. POSTPROCEDURE DIAGNOSIS Pneumonia. DETAILS OF PROCEDURE After taking consent from the patient, explaining the risks and benefits, patient was placed in the appropriate position. The bronchoscope was introduced through the oral cavity. The vocal cords appeared to be symmetrically moving toward the midline. Trachea was normal. The kelton was sharp. We examined the right upper lobe, right middle lobe, right lower lobe, left upper lobe, lingula and left lower lobe. No endobronchial lesions were found. There were thick mucoid secretions in both lungs, which were therapeutically suctioned. We did a bronchoalveolar lavage in the left lower lobe area with 60 mL in and 20 mL back. The patient tolerated the procedure very well. No complications happened. Dictated by... Erasto Paulson TD: 04/30/2017 12:27 JOB #: [id number] Unit #: [id number] #: [id number] Patient: ALL NATHAN PROCEDURE OPERATIVE NOTE Page 1 of 1 X Josue Handy MD PROCEDURE OPERATIVE NOTE
--- NOTE | ~2017-04-27 | HP ---
Unit #: [id number] #: [id number] Patient: ALL NATHAN [id number] [facility]. [address] [address] [id number] I MR#: [id number] NAME: ALL NATHAN ROOM: 573 Age: 52 Sex: M Admission Date: 04/27/2017 : 1965 Attending Physician: Steve Ashford M.D. Primary Care Physician: Mariah Montoya M.D. HISTORY AND PHYSICAL ADMISSION DIAGNOSES 1. Questionable urinary tract infection. 2. Nondiabetic ketoacidosis hyperglycemia. 3. History of insulin-dependent diabetes. 4. Peripheral neuropathy. 5. History of right foot osteomyelitis, status post toe and hallux amputation. 6. Hypertension. 7. Anemia of chronic disease. 8. History of dysphagia with Roro esophagitis. 9. History of recent Clostridium difficile colitis. 10. History of polysubstance abuse. HISTORY OF PRESENT ILLNESS Mr. Nathan is a 52-year-old gentleman well known to our service secondary to previous admission. Recently he was discharged from our service the end of February of this year when he was treated for Roro esophagitis and C. difficile colitis and also had a syncope workup. He was stabilized and discharged home. He was found with hyperglycemia with blood sugars over 500 by a home health nurse yesterday and was sent to the emergency room. Initial evaluation in the emergency room was significant for acute renal failure on chronic kidney disease, along with questionable UTI, and patient was started on some Rocephin and admitted. Patient otherwise denies any chest pain and denies any shortness of air, dyspnea, headache, dizziness, fever, chills, nausea, vomiting, diarrhea, or abdominal pain. So, a 12-point review of systems on this patient basically is negative except as above. PAST MEDICAL HISTORY 1. Diabetic ketoacidosis in the past. 2. Insulin-dependent diabetes. 3. Right lower extremity osteomyelitis. 4. Left eye blindness. 5. Opiate addiction. 6. Gastroesophageal reflux disease. 7. Dyslipidemia. 8. Dysphagia. 9. Roro esophagitis. 10. Recent Clostridium difficile colitis. 11. Syncopal episodes in the past. 12. Peripheral neuropathy. PAST SURGICAL HISTORY 1. Splenectomy. Unit #: [id number] #: [id number] Patient: ALL NATHAN 2. Corneal transplant x2. 3. Multiple I and D to the right fifth metatarsal. 4. Right foot fifth metatarsal and hallux amputation. 5. Left hallux and fifth metatarsal partial amputation. 6. Left second toe and second metatarsal partial amputation. HOME MEDICATIONS 1. Tylenol p.r.n. 2. Pepcid 20 mg daily. 3. Gabapentin 300 mg t.i.d. 4. Levemir 10 units subcutaneous daily. 5. Flagyl 500 mg b.i.d. 6. Zofran 8 mg p.o. t.i.d. ALLERGIES No known drug allergies. SOCIAL HISTORY Continues to smoke. Denies any current illicit drug use and denies any alcohol abuse. FAMILY HISTORY Unremarkable. PHYSICAL EXAMINATION GENERAL: Patient is a 52-year-old gentleman in no acute distress. VITAL SIGNS: Blood pressure 119/84, heart rate 94, respirations 18, and temperature 98.1. HEENT: Head is atraumatic. Pupil equal, round, and reactive to light and accommodation on the right. Oropharynx is clear with missing teeth. NECK: Supple. No mass, no JVD, and no bruits. CHEST: Diminished at bases but otherwise clear. CARDIOVASCULAR: S1 and S2. No murmurs. ABDOMEN: Soft, nontender, and nondistended. LOWER EXTREMITIES: Without any cyanosis, clubbing, or edema. NEUROLOGIC: Grossly intact. Again, he is blind in the left eye. DIAGNOSTIC STUDIES LABORATORY: White count 12.9 and hemoglobin and hematocrit 7.7 and 24.6. BUN and creatinine 57 and 2.3 and blood glucose 531. Urinalysis as above. Urine culture is pending. ASSESSMENT AND PLAN 1. Questionable urinary tract infection. Continue Rocephin. Follow up on urine culture. 2. Nondiabetic ketoacidosis hyperglycemia. Continue insulin regime per Dr. Arroyo. 3. History of insulin-dependent diabetes. 4. History of peripheral neuropathy. Continue home medications. 5. History of lower extremity osteomyelitis, status post right and left toe amputations with partial foot amputation and hallux amputation. 6. History of recent Clostridium difficile, still on Flagyl. 7. History of dysphagia and Roro esophagitis. 8. History of polysubstance abuse. 9. Anemia, rule out gastrointestinal bleed. Will check stool for occult blood, monitor hemoglobin and hematocrit closely, and transfuse as needed for hemoglobin less than 7. Unit #: [id number] #: [id number] Patient: ALL NATHAN. Gastrointestinal and deep venous thrombosis prophylaxis. Continue Pepcid and sequential compression devices. 1. Dictated by Erasto Barrett/burke TD: 04/28/2017 14:13 JOB #: [id number] HISTORY AND PHYSICAL Page 1 of 1 X Steve Ashford MD X HISTORY AND PHYSICAL
--- NOTE | ~2017-04-27 | CO ---
Unit #: [id number] #: [id number] Patient: MOOKIE NATHAN [id number] [facility] [address] [facility]. [place], [place] [address] [id number] I MR#: [id number] NAME: MOOKIE NATHAN ROOM: 218 Age: 52 Sex: M Admission Date: 04/27/2017 : 1965 Attending Physician: Steve Ashford M.D. Primary Care Physician: Mariah Montoya M.D. Consultation Date: 05/03/2017 CONSULTATION REPORT DISCUSSION Mr. Mookie Nathan is a 52-year-old male, seen on 05/03/2017. The patient was seen in room 218, bed 1 at [facility]. The patient is thin built, casually dressed, lying comfortably in bed. The patient denied any thoughts of harming self or others, but reported in pain, feeling sad, depressed, anxious. The patient denied any suicidal or homicidal ideation. Denied any psychotic symptom. The patient is tolerating medication fairly well. The patient was prescribed Cymbalta yesterday, no side effects from medication. Vital signs; temperature 97.9, pulse 97, respirations 18, blood pressure 143/93, oxygen saturation 98%. REVIEW OF SYSTEMS Complete review of systems is unremarkable. MENTAL STATUS EXAMINATION General appearance; the patient dressed casually in hospital attire, lying comfortably in bed, seemed to be in pain and anxious. Attention span and concentration, fair. Speech; regular rate and coherent. Oriented in time, place, and person. Mood and affect, sad and dysphoric. Thought process, goal directed. Thought content, the patient denied any thoughts of harming self or others or any psychotic symptom. Recent and remote memory, fair. Language, intact. Fund of knowledge, fair. Insight and judgment, fair to slightly impaired. DIAGNOSIS Psychiatric: Major depressive disorder, recurrent, severe, F33.2. ASSESSMENT/PLAN 1. Supportive psychotherapy and psychoeducation provided to the patient. 2. Educated about benefits and side effects of medication and course and prognosis of illness. 3. Advised to continue with current medication Cymbalta 30 mg daily. If needed, consider further adjustment of medication. We will continue to follow. Please feel free to call if any questions, telephone #[phone]. Dictated by... Erasto Srivastava/aleksandr TD: 05/03/2017 23:15 Unit #: [id number] #: [id number] Patient: MOOKIE NATHAN JOB #: [id number] CONSULTATION REPORT Page 1 of 1 X Rl Bates MD X CONSULTATION REPORT
--- NOTE | ~2017-04-27 | CO ---
Unit #: [id number] #: [id number] Patient: MOOKIE NATHAN [id number] [facility] [address] [facility]. [place], [place] [address] [id number] I MR#: [id number] NAME: MOOKIE NATHAN ROOM: 218 Age: 52 Sex: M Admission Date: 04/27/2017 : 1965 Attending Physician: Steve Ashford M.D. Primary Care Physician: Mariah Montoya M.D. Consultation Date: 05/06/2017 CONSULTATION REPORT REASON FOR CONSULTATION Followup. DISCUSSION Mr. Mookie Nathan is a 52-year-old male, seen in room 218 bed 1 on 05/06/2017 at [facility]. The patient was sitting in the chair, eating his breakfast. Affect bright, mood good. The patient was pleasant and cooperative. Reports mood is better, looking forward to be discharged home soon. The patient is waiting for his potassium to be normal. The patient's sodium this morning was 132, potassium 5.1, glucose 251. The patient denied any suicidal or homicidal ideation. Denied any psychotic symptom. Complete review of system unremarkable. The patient's vital signs; temperature 98.4, pulse 104, respirations 20, blood pressure 118/79, oxygen saturation 98%. MENTAL STATUS EXAMINATION General appearance; the patient dressed casually, sitting comfortably in chair, made good eye contact. Pleasant and cooperative. Affect, brighter. Mood good. Attention span and concentration, fair. Speech, regular rate and coherent. Oriented in time, place, and person. Mood and affect were brighter. Thought process, coherent. Thought content, the patient denied any thoughts of harming self or others or any psychotic symptom. Recent and remote memory, fair. Language, intact. Fund of knowledge, fair. Insight and judgment, fair to slightly impaired. DIAGNOSES Psychiatric: Major depressive disorder, recurrent, severe. ASSESSMENT AND PLAN 1. Supportive psychotherapy and psychoeducation provided to the patient. 2. Educated about benefits and side effects of medication and course and prognosis of illness. 3. Advised to continue with current medication. If needed, consider further adjustment of medication. Please feel free to call if any questions, telephone #[phone]. Dictated by... RlErasto Nunez/aleksandr TD: 05/07/2017 03:06 JOB #: [id number] Unit #: [id number] #: [id number] Patient: MOOKIE NATHAN CONSULTATION REPORT Page 1 of 1 X Rl Bates MD CONSULTATION REPORT
--- NOTE | ~2017-04-27 | FU ---
[facility] Nutrition Therapy DATE: 05/04/17 Patient: ALL Mahoney NATHAN Physician: GEE Address: [address] [facility] Room/Bed: [address] [place] [address], Zip: [place] [address] Admit Date: 04/27/17 Date of : [birth year] Height: 6 0 Weight: 134 61 NUTRITION MONITORING/FOLLOW-UP: Reason: SEEING PT FOR FOLLOW-UP, LOW BMI DX: 52 Y.O. MALE ADMITTED FOR UTI Anthropometrics: 6'0", HT: 134#, BMI 18 -ADMIT WEIGHT 104# Labs: K+ 5.6, GLU 147, BUN 61, CREAT 2.8, CA++ 8.3, ALB 2.2 Meds: LOVENOX, LOMOTIL WHITE, CYMBALTA, LEVEMIR, NACL, ZOSYN, PEPCID I&O's: 5970/4238 Skin: NONE NOTED. Estimated Nutrition Needs: 8173-5608 KCAL (35-40 KCAL/KG) 56-85 G PRO (1.2-1.8 G PRO KG/BW) FLUIDS CONSISTENT WITH W/ KCAL NEEDS OR MANAGE PER MD Assessment: CHART REVIEWED, EVENTS NOTED. PT SEEN FOR FOLLOW UP RE: LOW BMI. PT IS CURRENTLY RECEIVING ENTERAL NUTRITION SUPPORT OF GLUCERNA 1.2 @ 60 ML/HR X 24 HOURS. PT REPORTS HAVING A GOOD APPETITE AND TOLERATING SOLID FOODS. OF NOTE, PT WAS SEEN EATING A BURGER IN THE HOSPITAL [place] FOR LUNCH ON 05/04. PT IS ALSO CURRENTLY ON A PUREED/HONEY THICKENED LIQUIDS DIET, BUT IS UNHAPPY WITH THE DIET. PT REPORTS TOLERATING SOLID FOODS AT HOME. PT ALSO REQUESTED THAT THE ENTERAL NUTRITION SUPPORT BE D/C'D. RD OFFERED TO ORDER PT ENSURE PUDDING BID WHILE HE IS ON CURRENT DIET AND PT AGREED. PT REPORTED NO OTHER DIET QUESTIONS AT THIS TIME. RD TO CONTINUE TO FOLLOW. SEE RECOMMENDATIONS BELOW. Dx: 1) UNDERWEIGHT R/T CHRONIC DIARRHEA, MALABSORPTION AEB LOW BMI OF 14, 58% IBW, WEIGHT LOSS NOTED PAST 2 YEARS - ACTIVE 2) ALTERED NUTRIENT UTILIZATION R/T PMH AEB CURRENT THERAPUTIC DIET Intervention: 1. ENTERAL NUTRITION SUPPORT GLUCERNA 1.2 @ 60 ML/HR X 24 HOURS (PT RECEIVING 95% OF GOAL VOLUME PAST 24 HOURS PER PUMP HISTORY) 2. PUREED DIET WITH HONEY THICKENED LIQUIDS 3. CONSISTENT CARBOHYDRATE DIET 4. BUTTERSCOTCH ENSURE PUDDING BID [facility] Nutrition Therapy DATE: 05/04/17 Patient: ALL Mahoney JAC Physician: GEE Address: [address] [facility] Room/Bed: [address] [place] [address], Zip: [place] [address] Admit Date: 04/27/17 Date of : [birth year] Height: 6 0 Weight: 134 61 Monitoring, Evaluation and Goals: 1. ORAL INTAKE; CONSUME >50% OF MEALS AND SUPPLEMENTS W/NO C/O N/V/D -IN PROGRESS 2. WEIGHTS; PROMOTE GRADUAL WEIGHT GAIN TOWARDS HEALTHY BMI -IN PROGRESS 3. LABS; WNL -NOT MET/IN PROGRESS 4. GI; PROMOTE REGULAR GI FUNCTION- NOT MET/IN PROGRESS NEW GOALS: 1. ENTERAL NUTRITION; IF PT CONSUMES <50%, EN TO PROVIDE >80% OF ESTIMATED NUTRITION NEEDS MONITOR: -PO INTAKE/APPETITE -WEIGHTS -GI FUNCTION -SUPPLEMENT INTAKE Recommendations: 1. PLEASE ORDER ENSURE PUDDING BUTTERSCOTCH BID 2. PER MANUFACTURING MILLWRIGHT AND ADEQUATE PO INTAKE, DISCONTINUE ENTERAL NUTRITION SUPPORT 3. ENCOURAGE ADEQUATE PO INTAKE RD WILL F/U PER PROTOCOL PT IS MILD/MODERATELY COMPROMISED. Respectfully, FREDERICK WILKINS, COPY WORKER MIHIR BLOOM MS, RD, LD [facility] cc: client file
--- NOTE | ~2017-04-27 | CR72 ---
[facility] A Service of [facility] RADIOLOGY TEXT RESULTS PATIENT: ALL NATHAN LOCATION: [facility] 218- : [birth year] UNIT #: [id number] AGE: [address]: Steve Ashford MD SEX: M ORDER DR: [id number] [facility] [address] [facility]. [place], [place] [address] [id number] I MR#: [id number] Acc #: [id number] NAME: ALL NATHAN : 1965 SEX: M STUDY DATE/TIME: 05/01/2017 6:10 UNIT: [facility] ROOM: [facility] STUDY DESCRIPTION: CR Chest Single View Portable Attending Physician: Steve Ashford M.D. Ordering Physician: Mariah Montoya M.D. Primary Care Physician: Mariah Montoya M.D. MEDICAL IMAGING REPORT This report is preliminary unless electronic signature is present EXAM Portable chest HISTORY Follow up pneumonia. Shortness of air. COMPARISON STUDIES 04/30. FINDINGS AP portable view of the chest shows no change in patchy dense bilateral infiltrates, primarily in the lower lobes. These are worse on the left side than on the right. The heart size is normal. Dictated by... John Ovalle M.D. THIS IS AN ELECTRONICALLY VERIFIED REPORT John Ovalle M.D. at 05/02/2017 7:02 AM FEL/pcl TD: 05/01/2017 15:01 JOB #: [id number] MEDICAL IMAGING REPORT Page 1 of 1 COPY
--- NOTE | ~2017-04-27 | DS ---
Unit #: [id number] #: [id number] Patient: ALL NATHAN [id number] [address] [address] [id number] I MR#: [id number] NAME: ALL NATHAN ROOM: 218 Age: 52 Sex: M Admission Date: 04/27/2017 : 1965 Discharge Date: 05/06/2017 Attending Physician: Steve Ashford M.D. Primary Care Physician: Mariah Montoya M.D. DISCHARGE SUMMARY FINAL DIAGNOSES 1. Acute hypoxic respiratory failure which is resolved. 2. Klebsiella pneumoniae. 3. History of Clostridium difficile colitis. 4. Acute on chronic kidney disease stage 3. 5. Hyperkalemia, which is improved. 6. Diabetic ketoacidosis, resolved. 7. History of uncontrolled diabetes type one. 8. Anemia. 9. Past history of right foot osteomyelitis. 10. Hypertension. 11. History of Roro esophagitis in the past. 12. Status post percutaneous endoscopic gastrostomy placement. 13. History of polysubstance abuse. 14. Peripheral neuropathy. DISCHARGE MEDICATIONS 1. Tylenol 650 mg q.4 p.r.n. 2. Neurontin 300 mg three times a day. 3. Cymbalta 60 mg daily. 4. Zofran 8 mg q.8 p.r.n. 5. Accu-Chek. Continue at home. 6. Levemir 10 units subcu daily. 7. Metronidazole 500 mg three times a day for three more days. 8. Augmentin 500 mg twice a day for three more days. 9. Florastor 250 mg twice a day. CONSULTATION DURING HOSPITALIZATION 1. Dr. Arroyo from Endocrinology Services. 2. Dr. Harshal Handy from Pulmonary Services. 3. Dr. Steven Saxena from Infectious Disease Services. 4. Dr. Tushar Salazar from Renal Services. 5. Dr. Rl Bates from Psychiatry Services. PSYCHE DIAGNOSES 1. Major depressive disorder, severe, recurrent. 2. Opioid disorder, moderate to severe. LAB WORKUP ON DISCHARGE Glucose 214. BMP shows sodium 132, potassium 5.1, chloride 98, BUN 54, creatinine 2.1, calcium 8.7. CBC shows WBC 10.9, hemoglobin 9.2, hematocrit 28.0, platelet count 465. HOSPITAL COURSE Unit #: [id number] #: [id number] Patient: ALL NATHAN is a 52-year-old male who is very well known to me from multiple admissions, was admitted by Dr. Ashford on April 28, 2017, with diabetic ketoacidosis, questionable urinary tract infection. The patient was admitted to hospital, telemetry unit, and later on was transferred to ICU. The patient was in DKA, started on insulin drip and acute respiratory failure. The patient was diagnosed with acute respiratory failure with bilateral pneumonia. IV antibiotic was started. Dr. Handy was consulted. The patient had a bronch done on April 30, 2017. No endobronchial lesions were found. There were thick mucoid secretions in both lungs which were therapeutically suctioned. Because of C. diff. infection treated recently, Dr. Saxena was consulted. The patient was started on Flagyl which he will continue until he is (1) antibiotic. The patient is doing much better at this time. The patient is being discharged home. Dr. Yan and Dr. Salazar were consulted because of acute on chronic kidney disease and hyperkalemia, which seems to be better. The patient needs to stay on low potassium diet. I have explained it to him. It includes bananas, oranges, potatoes, tomatoes. He does verbalize understanding on that. This was discussed with the patient's son also. VITAL SIGNS ON DISCHARGE: Blood pressure 118/79. Respiratory rate 20. Pulse 104. Temperature 98.4. Oxygen saturation 98%. CHEST: Fair air entry. CARDIOVASCULAR: Regular rhythm. ABDOMEN: Soft. DISCHARGE INSTRUCTIONS 1. The patient is being discharged home in stable condition. Medication as per medication reconciliation. 2. Follow up primary care provider in one week. 3. CBC and BMP to be done in one week. 4. Follow up renal clinic with Dr. Yan or Dr. Salazar in four weeks. 5. Continue Accu-Chek a.c. and h.s. 6. Diet control advice. 7. Low potassium diet advised. Dictated by... Mariah Montoya M.D. Eduardo TD: 05/07/2017 08:13 JOB #: [id number] DISCHARGE SUMMARY Page 1 of 1 X Mariah Montoya MD DISCHARGE SUMMARY
--- NOTE | ~2017-04-27 | CR72 ---
[facility] A Service of [facility] RADIOLOGY TEXT RESULTS PATIENT: ALL NATHAN LOCATION: [facility] 218- : [birth year] UNIT #: [id number] AGE: [address]: Steve Ashford MD SEX: M ORDER DR: [id number] [facility] [address] [facility]. [place], [place] [address] [id number] I MR#: [id number] Acc #: [id number] NAME: ALL NATHAN : 1965 SEX: M STUDY DATE/TIME: 04/30/2017 4:34 UNIT: [facility] ROOM: [facility] STUDY DESCRIPTION: CR Chest Single View Portable Attending Physician: Steve Ashford M.D. Ordering Physician: Steve Ashford M.D. Primary Care Physician: Mariah Montoya M.D. MEDICAL IMAGING REPORT This report is preliminary unless electronic signature is present EXAM Portable chest INDICATION Shortness of air today. PROCEDURE Frontal view chest. COMPARISON 03/11/2017 FINDINGS New patchy opacities in both lung bases. Heart size is stable. No pneumothorax. IMPRESSION New patchy opacities in both lung bases suspicious for pneumonia. Dictated by... Ramiro Pastor M.D. THIS IS AN ELECTRONICALLY VERIFIED REPORT Ramiro Pastor M.D. at 05/03/2017 7:20 AM KATINA/kimberley TD: 04/30/2017 10:05 JOB #: [id number] MEDICAL IMAGING REPORT Page 1 of 1 COPY
--- NOTE | ~2017-04-27 | CO ---
Unit #: [id number] #: [id number] Patient: ALL NATHAN [id number] [address] [address] [id number] I MR#: [id number] NAME: ALL NATHAN ROOM: CICCU3 Age: 52 Sex: M Admission Date: 04/27/2017 : 1965 Attending Physician: Steve Ashford M.D. Primary Care Physician: Mariah Montoya M.D. Requesting Physician: Mariah Montoya M.D. Consultation Date: 04/30/2017 CONSULTATION REPORT REASON FOR CONSULTATION Aspiration pneumonia and c-diff colitis. HISTORY OF PRESENT ILLNESS The patient is a 52-year-old gentleman in extremely poor health, malnourished, with multiple medical problems. He was recently discharged after treatment for c-diff colitis and candidal esophagitis. He was readmitted on 04/27/2017 with hyperglycemia with a blood sugar of about 500 and increased serum creatinine. He was also noted to have new pulmonary infiltrates and leukocytosis as well as diarrhea. He was started on vancomycin, Zosyn and Flagyl. Infectious disease was consulted. The patient is scheduled to undergo bronchoscopic examination today. The patient is clinically stable, although he is lethargic and looks ill. He does have an oxygen mask on as well as a G tube. He denies any headache or chest pain or abdominal pain. His cultures are pending. PAST MEDICAL HISTORY 1. Diabetes. Poor control. Recurrent hyperosmolar state. 2. Previous osteomyelitis, requiring partial amputation of the foot. 3. Left eye blindness. 4. Opioid addiction. 5. Gastroesophageal reflux disease. 6. Hyperlipidemia. 7. Recent candidal esophagitis and c-diff colitis. 8. Previous syncope. 9. Peripheral neuropathy. PAST SURGICAL HISTORY 1. Splenectomy. 2. Corneal transplant. 3. Multiple incisions and drainage of the right foot, right foot infection, right foot metatarsal and hallux amputation, partial amputation of left hallux, left second toe and second metatarsal partial amputation. SOCIAL HISTORY The patient continues to smoke. No history of alcohol or drug use. FAMILY HISTORY Unknown. ALLERGIES No known drug allergies. Unit #: [id number] #: [id number] Patient: ALL NATHAN HOME MEDICATIONS 1. Tylenol. 2. Pepcid. 3. Gabapentin. 4. Levemir. 5. Flagyl. 6. Zofran. CURRENT HOSPITAL MEDICATIONS 1. Zosyn. 2. Vancomycin. 3. Flagyl. 4. Levophed. 5. Gabapentin. 6. Famotidine. 7. Levemir. 8. NovoLog. REVIEW OF SYSTEMS Unable to obtain from the patient in detail. The chart was reviewed and discussed with the nursing staff. Reason for admission was hyperosmolar state with new pulmonary infiltrate, leukocytosis, renal failure and diarrhea. PHYSICAL EXAMINATION GENERAL: Middle-aged male who looks much older than his stated age. He is somewhat lethargic, but awake and able to answer simple questions. VITALS: Temperature 97.7, no fever was documented during this admission. His blood pressure is currently 114/77, lowest blood pressure was 85/56 early this morning. HEENT: He looks pale. He has an oxygen mask on. Oral hygiene is extremely poor. He is emaciated and malnourished. NECK: Supple. LUNGS: Scattered crackles at the bases. HEART: Heart sounds are muffled, but normal. ABDOMEN: Soft and nontender. G tube in place. No guarding or rigidity. Bowel sounds normal. NEUROLOGIC: He is awake and able to move all four extremities. He does have generalized muscle wasting and malnourishment. DIAGNOSTIC STUDIES IMAGING: Chest x-ray showed patchy basilar infiltrates which are new. LABORATORY: Sodium 129, potassium 4.6, chloride 102, CO2 20, BUN 50, creatinine 2.1. Procalcitonin is 4.01, lactic acid 1.6, white blood cell count 28.7, hemoglobin 7.8, platelets 503, hemoglobin A1c 13, urine culture yeast species. Urinalysis shows some pyuria, glucosuria. White blood cell count on admission was 11.4. Creatinine was 2.2. ASSESSMENT Possible new healthcare associated pneumonia versus aspiration pneumonitis with questionable lapse of c-diff colitis. Plan for bronchoscopy noted today. PLAN I agree with empiric coverage with vancomycin and Zosyn as well as Flagyl. Will wait for the bronchoscopic culture, blood cultures and c-diff toxin. Further recommendations will follow. Unit #: [id number] #: [id number] Patient: ALL NATHAN Dictated by... Erasto Anderson/anil TD: 05/01/2017 09:22 JOB #: [id number] CONSULTATION REPORT Page 1 of 1 X Steven Saxena MD CONSULTATION REPORT
--- NOTE | ~2017-04-27 | EKG ---
PATIENT: ALL NATHAN UNIT #: [id number] Ventricular Rate: 101 BPM Atrial Rate: 101 BPM P-R Interval: 174 ms QRS Duration: 94 ms Q-T Interval: 362 ms QTC Calculation(Bezet): 469 ms P [place]: 74 degrees Calculated R [place]: 64 degrees Calculated T [place]: 77 degrees Diagnosis Line: Sinus tachycardia Diagnosis Line: Otherwise normal ECG Diagnosis Line: When compared with ECG of 13-MAR-2017 10:05, Diagnosis Line: Nonspecific T wave abnormality no longer evident Diagnosis Line: in Inferior leads Diagnosis Line: Confirmed by ADOLFO ROQUE MD ([id number]) on Diagnosis Line: 04/27/2017 3:52:02 PM INTERPRETING MD: MYA BURGOS
--- NOTE | ~2017-04-27 | CO ---
Unit #: [id number] #: [id number] Patient: MOOKIE NATHAN [id number] [facility] [address] [facility]. [place], [place] [address] [id number] I MR#: [id number] NAME: MOOKIE NATHAN ROOM: 218 Age: 52 Sex: M Admission Date: 04/27/2017 : 1965 Attending Physician: Steve Ashford M.D. Primary Care Physician: Mariah Montoya M.D. Consultation Date: 05/05/2017 CONSULTATION REPORT REASON FOR CONSULTATION Followup. DISCUSSION Mr. Mookie Nathan is a 52-year-old white male, seen in room 218 bed 1 on 05/05/2017 at [facility]. The patient was pleasant and cooperative. Mood; sad, dysphoric, somewhat irritable, but denied any thoughts of harming self or others. Denied any psychotic symptom. The patient was compliant and cooperative, but still having periods of irritability and mood lability. The patient's vital signs; temperature 97.4, pulse 100, respirations 20, blood pressure 118/98, oxygen saturation 98%. The patient was not able to go home as his potassium was 6.1, still working on getting his level within normal range. REVIEW OF SYSTEMS Complete review of systems is unremarkable. MENTAL STATUS EXAMINATION Vital signs; please see above. General appearance; the patient is thin built, casually dressed. Made good eye contact, pleasant, and cooperative. Mood was somewhat irritable. Attention span and concentration, fair. Speech, regular rate and coherent. Oriented in time, place, and person. Mood and affect were sad, dysphoric. Thought process, coherent. Thought content, the patient denied any thoughts of harming self or others. Recent and remote memory, fair. Language, intact. Fund of knowledge, fair to slightly impaired. Insight and judgment, fair to slightly impaired. DIAGNOSES Psychiatric: Major depressive disorder, recurrent, severe, F33.2. ASSESSMENT AND PLAN 1. Supportive psychotherapy and psychoeducation provided to the patient. 2. Educated about benefits and side effects of medication and course and prognosis of illness. 3. Advised to continue with current medication with a plan to follow up on the outpatient basis once the patient is stable. Please feel free to call if any questions, telephone #[phone]. Dictated by... Rl Bates M.D. [facility]/aleksandr Unit #: [id number] #: [id number] Patient: MOOKIE NATHAN TD: 05/07/2017 03:00 JOB #: [id number] CONSULTATION REPORT Page 1 of 1 X Rl Bates MD X CONSULTATION REPORT
[~2017-04-27 13:28] MED LIST changes: +AMOXICILLIN500 M1 PO; +CLARITHROMYCIN500 M2 PO; +LANTUS100 UNITS/ SUBQ; +OMEPRAZOLE40 M1 PO; +ONDANSETRON HCL8 MG PO; +ZESTRIL2.5 M1 PO
[2017-04-27 15:04] LABS: BASOPHIL% 0.2 % (0-2.5); EOSINOPHIL% 0.4 % (0.0-7.0); HEMATOCRIT 28.5 % (38.0-50.0); HEMOGLOBIN 9.1 gm/dL (13.0-16.0); LYMPHOCYTE# 0.9 X10e3 (1.0-3.5); LYMPHOCYTE% 7.8 % (17.0-45.0); MEAN CELL VOLUME 85.1 FL (83-96); MEAN CORPUSCULAR HEMOGLOBIN 27.3 PG (28-34); MEAN CORPUSCULAR HGB CONC 32.1 g/dL (30-36); MEAN PLATELET VOLUME 7.3 FL (6.5-11.5); MONOCYTE# 0.5 X10e3 (0-1.0); MONOCYTE% 4.6 % (3.0-12.0); PLATELET COUNT 510 X10e3 (140-420); RED BLOOD COUNT 3.35 X10e (3.90-5.60); RED CELL DISTRIBUTION WIDTH 17.6 % (11.0-15.5); WHITE BLOOD COUNT 11.4 X10e3 (4.0-10.5)
[2017-04-27 15:06] LABS: DIFF IND NO
[2017-04-27 15:24] LABS: ALBUMIN SERUM 2.4 g/dL (3.5-5.0); BILIRUBIN, DIRECT 0.1 mg/dL (0.0-0.2); BILIRUBIN,INDIRECT 0.4 mg/dL (0.0-0.9); BILIRUBIN,TOTAL 0.5 mg/dL (0.2-2.0); BUN/CREATININE RATIO 24.54; CALCIUM SERUM 8.8 mg/dL (8.4-10.2); CREATININE SERUM 2.2 mg/dL (0.6-1.4); GLOM FILT RATE Estimated 33.5 mL/min (>60); POTASSIUM 4.4 mmol/L (3.5-5.1); PROTEIN TOTAL SERUM 7.7 g/dL (6.0-8.3)
[2017-04-27 15:42] LABS: POC - CKMB 3.4 ng/mL (0.0-7.9); POC - TROPONIN <0.05 ng/mL (<=0.05)
[2017-04-27 15:46] LABS: URINE SOURCE CLEAN CATCH
[2017-04-27 15:51] LABS: URINE APPEARANCE CLEAR; URINE BILIRUBIN NEG (NEG); URINE BLOOD 2+ (NEG); URINE COLOR YELLOW; URINE GLUCOSE >1000 MG/DL (NEG); URINE KETONE TRACE (NEG); URINE LEUKOCYTE ESTERASE 3+ (NEG); URINE NITRATE NEG (NEG); URINE PROTEIN 1+ (NEG); URINE SPECIFIC GRAVITY 1.013 (1.003-1.035); URINE UROBILINOGEN 0.2 MG/DL (NEG)
[2017-04-27 15:54] LABS: CULTURE INDICATED? YES; URINE BACTERIA AUWI NEG (NEGATIVE); URINE SQUAMOUS EPITHELIAL CELL NONE SEEN /[HPF]; UWBCS1 AUWI 100-200 (0-5)
[2017-04-27] MEDS ORDERED: ACCU-CHECK SOF1 EACH MC (23:48)
[2017-04-27] MEDS ORDERED: FAMOTIDINE20 MG PO (23:49)
[2017-04-27] MEDS ORDERED: ARTHRITIS PAIN650 M3 PO (23:49)
[2017-04-27] MEDS ORDERED: GABAPENTIN300 M2 PO (23:50)
[2017-04-27] MEDS ORDERED: LEVEMIR FL100 UNIT/1 SUBQ (23:51)
[2017-04-27] MEDS ORDERED: FLAGYL250 M1 PO (23:53)
[2017-04-27] MEDS ORDERED: ZOFRAN8 MG PO (23:54)
[2017-04-28 05:57] LABS: BASOPHIL% 0.2 % (0-2.5); EOSINOPHIL% 0.1 % (0.0-7.0); HEMATOCRIT 24.6 % (38.0-50.0); HEMOGLOBIN 7.7 gm/dL (13.0-16.0); LYMPHOCYTE# 1.2 X10e3 (1.0-3.5); LYMPHOCYTE% 9.6 % (17.0-45.0); MEAN CELL VOLUME 84.8 FL (83-96); MEAN CORPUSCULAR HEMOGLOBIN 26.6 PG (28-34); MEAN CORPUSCULAR HGB CONC 31.4 g/dL (30-36); MEAN PLATELET VOLUME 7.4 FL (6.5-11.5); MONOCYTE# 0.6 X10e3 (0-1.0); MONOCYTE% 4.8 % (3.0-12.0); NEUTROPHIL% 85.3 % (40-75); PLATELET COUNT 477 X10e3 (140-420); RED CELL DISTRIBUTION WIDTH 17.5 % (11.0-15.5); WHITE BLOOD COUNT 12.9 X10e3 (4.0-10.5)
[2017-04-28 05:59] LABS: DIFF IND YES
[2017-04-28 06:27] LABS: ALBUMIN SERUM 2.2 g/dL (3.5-5.0); BILIRUBIN,TOTAL 0.5 mg/dL (0.2-2.0); BUN/CREATININE RATIO 24.78; CALCIUM SERUM 8.5 mg/dL (8.4-10.2); CREATININE SERUM 2.3 mg/dL (0.6-1.4); GLOM FILT RATE Estimated 31.7 mL/min (>60); POTASSIUM 4.2 mmol/L (3.5-5.1); PROTEIN TOTAL SERUM 6.8 g/dL (6.0-8.3)
[2017-04-28 06:34] LABS: ANISOCYTOSIS MOD; PLATELET ESTIMATE INCREASED (NORMAL); POIKILOCYTOSIS SL; RBC NORMAL YES
[2017-04-28 15:30] LABS: HEMATOCRIT 25.4 % (38.0-50.0); HEMOGLOBIN 8.1 gm/dL (13.0-16.0)
[2017-04-29 05:41] LABS: HEMATOCRIT 25.8 % (38.0-50.0); HEMOGLOBIN 8.3 gm/dL (13.0-16.0); MEAN CELL VOLUME 84.1 FL (83-96); MEAN CORPUSCULAR HGB CONC 32.1 g/dL (30-36); MEAN PLATELET VOLUME 7.1 FL (6.5-11.5); RED BLOOD COUNT 3.07 X10e (3.90-5.60); RED CELL DISTRIBUTION WIDTH 17.8 % (11.0-15.5); WHITE BLOOD COUNT 14.5 X10e3 (4.0-10.5)
[2017-04-29 06:54] LABS: BUN/CREATININE RATIO 25.26; CALCIUM SERUM 8.3 mg/dL (8.4-10.2); CREATININE SERUM 1.9 mg/dL (0.6-1.4); GLOM FILT RATE Estimated 39.9 mL/min (>60); POTASSIUM 3.8 mmol/L (3.5-5.1)
[2017-04-30 03:56] LABS: ARTERIAL BLD GAS O2 SATURATION 87.7 % (90.0-100.0); ARTERIAL BLOOD GAS CARBOXY HB 1.2 %sat (0.0-9.0); ARTERIAL BLOOD GAS HCO3 22.3 mmol/L; ARTERIAL BLOOD GAS PCO2 37.2 mmHg (35.0-45.0); ARTERIAL BLOOD GAS PO2 50.8 mmHg (80.0-100); ARTERIAL BLOOD GAS pH 7.385 (7.350-7.450)
[2017-04-30 03:57] LABS: ARTERIAL BLOOD GAS ALLEN TEST NORMAL; ARTERIAL BLOOD GAS ART SITE RIGHT RADIAL; ARTERIAL BLOOD GAS DELIVERY VENTURI; ARTERIAL DRAW? YES
[2017-04-30 07:37] LABS: HEMATOCRIT 25.2 % (38.0-50.0); HEMOGLOBIN 7.9 gm/dL (13.0-16.0); MEAN CELL VOLUME 85.1 FL (83-96); MEAN CORPUSCULAR HEMOGLOBIN 26.5 PG (28-34); MEAN CORPUSCULAR HGB CONC 31.2 g/dL (30-36); MEAN PLATELET VOLUME 7.7 FL (6.5-11.5); RED BLOOD COUNT 2.96 X10e (3.90-5.60); RED CELL DISTRIBUTION WIDTH 18.1 % (11.0-15.5); WHITE BLOOD COUNT 28.7 X10e3 (4.0-10.5)
[2017-04-30 07:57] LABS: BUN/CREATININE RATIO 23.8; CALCIUM SERUM 7.6 mg/dL (8.4-10.2); CREATININE SERUM 2.1 mg/dL (0.6-1.4); GLOM FILT RATE Estimated 35.4 mL/min (>60); POTASSIUM 4.6 mmol/L (3.5-5.1)
[2017-04-30 08:36] LABS: PROCALCITONIN 4.01 NG/ML
[2017-04-30 13:13] LABS: BF TOTAL NUCLEATED CELL COUNT 29921 CMM (0-100); BODY FLUID APPEARANCE CLOUDY; BODY FLUID RBC 12499 CMM; BODY FLUID SOURCE BRONCHIAL LAVAGE
[2017-05-01 04:11] LABS: ARTERIAL BLD GAS O2 SATURATION 99.1 % (90.0-100.0); ARTERIAL BLOOD GAS ALLEN TEST NORMAL; ARTERIAL BLOOD GAS ART SITE RIGHT RADIAL; ARTERIAL BLOOD GAS CARBOXY HB 0.4 %sat (0.0-9.0); ARTERIAL BLOOD GAS DELIVERY NASAL CANNULA; ARTERIAL BLOOD GAS HCO3 16.3 mmol/L; ARTERIAL BLOOD GAS MET HB 0.8 %sat (0.0-2.0); ARTERIAL BLOOD GAS PCO2 35.3 mmHg (35.0-45.0); ARTERIAL BLOOD GAS pH 7.272 (7.350-7.450); ARTERIAL DRAW? YES
[2017-05-01 06:10] LABS: BUN/CREATININE RATIO 18.57; CALCIUM SERUM 7.8 mg/dL (8.4-10.2); CREATININE SERUM 2.8 mg/dL (0.6-1.4); POTASSIUM 4.3 mmol/L (3.5-5.1)
[2017-05-01 06:24] LABS: BASOPHIL# 0.1 X10e3 (0-0.3); BASOPHIL% 0.3 % (0-2.5); EOSINOPHIL# 0.1 X10e3 (0-0.7); EOSINOPHIL% 0.5 % (0.0-7.0); HEMATOCRIT 24.1 % (38.0-50.0); HEMOGLOBIN 7.6 gm/dL (13.0-16.0); LYMPHOCYTE# 1.1 X10e3 (1.0-3.5); LYMPHOCYTE% 4.3 % (17.0-45.0); MEAN CORPUSCULAR HEMOGLOBIN 26.6 PG (28-34); MEAN CORPUSCULAR HGB CONC 31.3 g/dL (30-36); MEAN PLATELET VOLUME 7.3 FL (6.5-11.5); MONOCYTE# 0.3 X10e3 (0-1.0); MONOCYTE% 1.3 % (3.0-12.0); NEUTROPHIL% 93.6 % (40-75); RED BLOOD COUNT 2.84 X10e (3.90-5.60); RED CELL DISTRIBUTION WIDTH 17.9 % (11.0-15.5); WHITE BLOOD COUNT 25.7 X10e3 (4.0-10.5)
[2017-05-01 06:25] LABS: DIFF IND YES
[2017-05-01 06:45] LABS: PROCALCITONIN 6.9 NG/ML
[2017-05-01 07:56] LABS: PLATELET ESTIMATE INCREASED (NORMAL)
[2017-05-01 07:57] LABS: ANISOCYTOSIS SL; HYPERSEGMENTED POLYS PRESENT; HYPOCHROMIA SL; ROULEAUX SLIGHT
[2017-05-01 07:59] LABS: PLATELET COUNT 476 X10e3 (140-420)
[2017-05-01 18:56] LABS: URINE APPEARANCE CLEAR; URINE BILIRUBIN NEG (NEG); URINE BLOOD 3+ (NEG); URINE COLOR YELLOW; URINE GLUCOSE NEG (NEG); URINE KETONE NEG (NEG); URINE LEUKOCYTE ESTERASE 3+ (NEG); URINE NITRATE NEG (NEG); URINE PROTEIN 1+ (NEG); URINE SPECIFIC GRAVITY 1.006 (1.003-1.035); URINE UROBILINOGEN 0.2 MG/DL (NEG)
[2017-05-01 18:59] LABS: CULTURE INDICATED? YES; URINE BACTERIA AUWI NEG (NEGATIVE); URINE SQUAMOUS EPITHELIAL CELL OCC /[HPF]; UWBCS1 AUWI 50-100 (0-5)
[2017-05-01 19:35] LABS: CREATININE,RANDOM URINE 15 mg/dL; SODIUM URINE RANDOM 56 mmol/L
[2017-05-02 05:53] LABS: BASOPHIL# 0.1 X10e3 (0-0.3); BASOPHIL% 0.2 % (0-2.5); EOSINOPHIL# 0.2 X10e3 (0-0.7); EOSINOPHIL% 0.8 % (0.0-7.0); HEMATOCRIT 21.1 % (38.0-50.0); LYMPHOCYTE# 0.7 X10e3 (1.0-3.5); MEAN CELL VOLUME 83.7 FL (83-96); MEAN CORPUSCULAR HGB CONC 32.3 g/dL (30-36); MEAN PLATELET VOLUME 7.3 FL (6.5-11.5); MONOCYTE# 0.4 X10e3 (0-1.0); MONOCYTE% 1.8 % (3.0-12.0); NEUTROPHIL# 23.3 X10e3 (1.5-7.1); NEUTROPHIL% 94.2 % (40-75); PLATELET COUNT 529 X10e3 (140-420); RED BLOOD COUNT 2.52 X10e (3.90-5.60); RED CELL DISTRIBUTION WIDTH 18.4 % (11.0-15.5); WHITE BLOOD COUNT 24.7 X10e3 (4.0-10.5)
[2017-05-02 05:54] LABS: BUN/CREATININE RATIO 17.27; CALCIUM SERUM 7.7 mg/dL (8.4-10.2); CREATININE SERUM 3.3 mg/dL (0.6-1.4); GLOM FILT RATE Estimated 20.5 mL/min (>60); POTASSIUM 4.8 mmol/L (3.5-5.1)
[2017-05-02 05:58] LABS: HEMOGLOBIN 6.8 gm/dL (13.0-16.0)
[2017-05-02 05:59] LABS: DIFF IND NO
[2017-05-02 07:01] LABS: HEMATOCRIT 21.9 % (38.0-50.0)
[2017-05-03 08:47] LABS: BASOPHIL# 0.1 X10e3 (0-0.3); BASOPHIL% 0.3 % (0-2.5); EOSINOPHIL# 0.4 X10e3 (0-0.7); EOSINOPHIL% 1.8 % (0.0-7.0); HEMATOCRIT 29.4 % (38.0-50.0); LYMPHOCYTE# 1.5 X10e3 (1.0-3.5); LYMPHOCYTE% 7.2 % (17.0-45.0); MEAN CELL VOLUME 85.3 FL (83-96); MEAN CORPUSCULAR HEMOGLOBIN 27.7 PG (28-34); MEAN CORPUSCULAR HGB CONC 32.5 g/dL (30-36); MEAN PLATELET VOLUME 7.2 FL (6.5-11.5); MONOCYTE# 0.5 X10e3 (0-1.0); MONOCYTE% 2.2 % (3.0-12.0); NEUTROPHIL# 18.6 X10e3 (1.5-7.1); NEUTROPHIL% 88.5 % (40-75); PLATELET COUNT 538 X10e3 (140-420); RED BLOOD COUNT 3.44 X10e (3.90-5.60); RED CELL DISTRIBUTION WIDTH 17.4 % (11.0-15.5)
[2017-05-03 08:48] LABS: DIFF IND NO; HEMOGLOBIN 9.5 gm/dL (13.0-16.0)
[2017-05-03 09:21] LABS: BUN/CREATININE RATIO 18.38; CALCIUM SERUM 8.3 mg/dL (8.4-10.2); CREATININE SERUM 3.1 mg/dL (0.6-1.4); GLOM FILT RATE Estimated 22.1 mL/min (>60)
[2017-05-03 09:39] LABS: POTASSIUM 5.6 mmol/L (3.5-5.1)
[2017-05-03 17:36] LABS: BUN/CREATININE RATIO 20.34; CALCIUM SERUM 8.3 mg/dL (8.4-10.2); CREATININE SERUM 2.9 mg/dL (0.6-1.4); GLOM FILT RATE Estimated 23.9 mL/min (>60); POTASSIUM 4.9 mmol/L (3.5-5.1)
[2017-05-04 05:21] LABS: HEMATOCRIT 27.5 % (38.0-50.0); HEMOGLOBIN 9.2 gm/dL (13.0-16.0); MEAN CORPUSCULAR HEMOGLOBIN 28.1 PG (28-34); MEAN CORPUSCULAR HGB CONC 33.4 g/dL (30-36); MEAN PLATELET VOLUME 7.1 FL (6.5-11.5); RED BLOOD COUNT 3.27 X10e (3.90-5.60); RED CELL DISTRIBUTION WIDTH 16.6 % (11.0-15.5); WHITE BLOOD COUNT 15.4 X10e3 (4.0-10.5)
[2017-05-04 06:21] LABS: PROCALCITONIN 1.75 NG/ML
[2017-05-04 06:22] LABS: BUN/CREATININE RATIO 21.78; CALCIUM SERUM 8.3 mg/dL (8.4-10.2); CREATININE SERUM 2.8 mg/dL (0.6-1.4); PHOSPHOROUS 4.7 mg/dL (2.5-4.6)
[2017-05-04 06:25] LABS: POTASSIUM 5.6 mmol/L (3.5-5.1)
[2017-05-04 14:26] LABS: BUN/CREATININE RATIO 21.92; CALCIUM SERUM 8.2 mg/dL (8.4-10.2); CREATININE SERUM 2.6 mg/dL (0.6-1.4); GLOM FILT RATE Estimated 27.3 mL/min (>60); POTASSIUM 5.4 mmol/L (3.5-5.1)
[2017-05-05 06:26] LABS: HEMOGLOBIN 9.2 gm/dL (13.0-16.0); MEAN CELL VOLUME 85.1 FL (83-96); MEAN CORPUSCULAR HGB CONC 32.9 g/dL (30-36); MEAN PLATELET VOLUME 7.2 FL (6.5-11.5); RED BLOOD COUNT 3.29 X10e (3.90-5.60); RED CELL DISTRIBUTION WIDTH 16.8 % (11.0-15.5); WHITE BLOOD COUNT 10.9 X10e3 (4.0-10.5)
[2017-05-05 07:48] LABS: BUN/CREATININE RATIO 23.33; CALCIUM SERUM 8.3 mg/dL (8.4-10.2); CREATININE SERUM 2.4 mg/dL (0.6-1.4); GLOM FILT RATE Estimated 30.1 mL/min (>60)
[2017-05-05 07:50] LABS: POTASSIUM 6.1 mmol/L (3.5-5.1)
[2017-05-05 12:53] LABS: BUN/CREATININE RATIO 23.47; CALCIUM SERUM 8.5 mg/dL (8.4-10.2); CREATININE SERUM 2.3 mg/dL (0.6-1.4); GLOM FILT RATE Estimated 31.7 mL/min (>60); POTASSIUM 5.3 mmol/L (3.5-5.1)
[2017-05-06 06:02] LABS: BUN/CREATININE RATIO 25.71; CALCIUM SERUM 8.7 mg/dL (8.4-10.2); CREATININE SERUM 2.1 mg/dL (0.6-1.4); GLOM FILT RATE Estimated 35.4 mL/min (>60); POTASSIUM 5.1 mmol/L (3.5-5.1)
[2017-05-06] MEDS ORDERED: AUGMENTIN PO (16:00)
[2017-05-06] MEDS ORDERED: PROBIOTIC1 EAC3 PO (16:01)
== END 2017-05-06 16:22 | disposition home or self-care (01) | DRG 166 ==
LOC: CED 13:28 → CEDOF 18:30 → C5C 18:33 → CED 18:33 → CEDOF 18:33 → C5C 18:33 → CEDOF 21:25 → C5C 21:25 → CICCU3 04-30 04:09 → C2A 05-01 18:39
PROVIDERS: Emergency Medicine; Hospitalist; Internal Medicine; Internal Medicine Nephrology; Nurse Practitioner Family; Physician Assistant Medical
PROC: 0B9J8ZX Drainage of Left Lower Lung Lobe, Via Natural or Artificial Opening Endoscopic, Diagnostic (ICD-10-PCS; principal; 2017-04-30 11:33)
PROC: 0B9M8ZZ Drainage of Bilateral Lungs, Via Natural or Artificial Opening Endoscopic (ICD-10-PCS; 2017-04-30 11:33)
PROC: 30233N1 Transfusion of Nonautologous Red Blood Cells into Peripheral Vein, Percutaneous Approach (ICD-10-PCS; 2017-05-03)
DX: J69.0 Pneumonitis due to inhalation of food and vomit (principal); J96.01 Acute respiratory failure with hypoxia; E10.10 Type 1 diabetes mellitus with ketoacidosis without coma; A04.7 Enterocolitis due to Clostridium difficile; N17.9 Acute kidney failure, unspecified; E46 Unspecified protein-calorie malnutrition; N18.3 Chronic kidney disease, stage 3 (moderate); N39.0 Urinary tract infection, site not specified; F11.20 Opioid dependence, uncomplicated; F33.2 Major depressive disorder, recurrent severe without psychotic features; E87.1 Hypo-osmolality and hyponatremia; Z68.1 Body mass index [BMI] 19.9 or less, adult; J15.0 Pneumonia due to Klebsiella pneumoniae; E10.22 Type 1 diabetes mellitus with diabetic chronic kidney disease; D64.89 Other specified anemias; K21.9 Gastro-esophageal reflux disease without esophagitis; E78.5 Hyperlipidemia, unspecified; Z89.432 Acquired absence of left foot; Z89.431 Acquired absence of right foot; E10.42 Type 1 diabetes mellitus with diabetic polyneuropathy; H54.42 Blindness, left eye, normal vision right eye; Z94.7 Corneal transplant status; I12.9 Hypertensive chronic kidney disease with stage 1 through stage 4 chronic kidney disease, or unspecified chronic kidney disease; J44.9 Chronic obstructive pulmonary disease, unspecified; E87.5 Hyperkalemia; Z79.4 Long term (current) use of insulin
CPT/HCPCS: 36415; 36600; 71010; 74230; 80048; 80053; 80076; 80202; 81003; 82274; 82308; 82553; 82570; 82803; 82947; 83036; 83605; 83735; 84100; 84300; 84484; 85014; 85018; 85025; 85027; 86850; 86900; 86901; 86923; 87040; 87070; 87077; 87086; 87102; 87106; 87116; 87186; 87205; 87206; 87252; 87254; 87278; 87493; 88108; 88305; 88312; 89051; 89190; 92526; 92611; 93005; 94640; 94760; 96361; 96374; 99285; J0171; J0696; J1650; J1815; J2250; J2405; J2543; J3010; J3370; P9016

== ENCOUNTER 2017-05-08 00:41 | Emergency (ER) | payer OTHER ==
--- NOTE | ~2017-05-08 | CR63 ---
[facility] A Service of [facility] RADIOLOGY TEXT RESULTS PATIENT: ALL NATHAN LOCATION: [facility] : 67 UNIT #: [id number] AGE: [address]: Adriel Radford PAC SEX: M ORDER DR: [id number] [id number] [facility]. [place], [place] [address] [id number] MR#: [id number] Acc #: [id number] NAME: ALL NATHAN : 1965 SEX: M STUDY DATE/TIME: 05/08/2017 2:51 UNIT: [facility] ROOM: STUDY DESCRIPTION: CR Chest 2 View Attending Physician: Adriel Radford P.A.-C. Ordering Physician: Adriel Radford P.A.-C. Primary Care Physician: Mariah Montoya M.D. MEDICAL IMAGING REPORT This report is preliminary unless electronic signature is present EXAM PA and lateral chest 05/08/2017 INDICATION Weakness, altered mental status today. COMPARISON 05/06/2017. FINDINGS PA and lateral views of the chest were obtained. There is a large patchy infiltrate in the left lower lobe measuring about 11 cm in diameter. It is similar to the 1 seen 1 week ago. Infiltrates in the right lung have cleared. The heart size is normal. IMPRESSION 1. The right lower lobe infiltrate noted 7 days ago has resolved. 2. There is still dense left lower lobe infiltrate present which is not changed significantly from the prior study. Dictated by... John Ovalle M.D. THIS IS AN ELECTRONICALLY VERIFIED REPORT John Ovalle M.D. at 05/08/2017 1:30 PM LUIS MIGUEL/luciano TD: 05/08/2017 10:02 [facility] A Service [facility] RADIOLOGY TEXT RESULTS PATIENT: ALL NATHAN LOCATION: [facility] : 67 UNIT #: [id number] AGE: [address]: Adriel Radford PAC SEX: M ORDER DR: YUNIOR #: [id number] MEDICAL IMAGING REPORT Page 1 of 1 COPY
--- NOTE | ~2017-05-08 | CT71 ---
[facility] A Service of [facility] RADIOLOGY TEXT RESULTS PATIENT: ALL NATHAN LOCATION: [facility] : 67 UNIT #: [id number] AGE: [address]: Adriel Radford PAC SEX: M ORDER DR: [id number] [place] [id number] [facility] [place] [facility]. [place], [place] [address] [id number] MR#: [id number] Acc #: [id number] NAME: ALL NATHAN : 1965 SEX: M STUDY DATE/TIME: 05/08/2017 3:28 UNIT: [facility] ROOM: STUDY DESCRIPTION: CT Head Wo Contrast Attending Physician: Adriel Radford P.A.-C. Ordering Physician: Adriel Radford P.A.-C. Primary Care Physician: Mariah Montoya M.D. MEDICAL IMAGING REPORT This report is preliminary unless electronic signature is present EXAM CT scan of the head without contrast, 05/08/17 INDICATION Found unresponsive a few hours ago. History of drug abuse. COMPARISON STUDIES 03/18/17 FINDINGS TECHNIQUE Axial noncontrast images were obtained from the skull base to the vertex. This CT exam was performed with one or more of the following radiation dose reduction techniques: automatic exposure control, adjustment of mA and/or kV according to patient size, and iterative reconstruction. FINDINGS Ventricular size and configuration are normal. There is no evidence of acute infarct or hemorrhage. There are no extraaxial fluid collections. No mass lesion or mass effect is seen. There are no skull fractures. IMPRESSION Normal noncontrast head CT. FINDINGS [facility] A Service of [facility] RADIOLOGY TEXT RESULTS PATIENT: ALL NATHAN LOCATION: [facility] : 67 UNIT #: [id number] AGE: [address]: Adriel Radford PAC SEX: M ORDER DR: Dictated by... John Ovalle M.D. THIS IS AN ELECTRONICALLY VERIFIED REPORT John Ovalle M.D. at 05/08/2017 1:31 PM Sis TD: 05/08/2017 10:36 JOB #: [id number] MEDICAL IMAGING REPORT Page 1 of 1 COPY
--- NOTE | ~2017-05-08 | EKG ---
PATIENT: ALL NATHAN UNIT #: [id number] Ventricular Rate: 78 BPM Atrial Rate: 78 BPM P-R Interval: 182 ms QRS Duration: 94 ms Q-T Interval: 414 ms QTC Calculation(Bezet): 471 ms P Rolla: 73 degrees Calculated R Rolla: 58 degrees Calculated T Rolla: 70 degrees Diagnosis Line: Normal sinus rhythm Diagnosis Line: Normal ECG Diagnosis Line: When compared with ECG of 27-APR-2017 14:47, Diagnosis Line: No significant change was found Diagnosis Line: Confirmed by ULYSSES THOMPSON MD ([id number]) on 05/09/2017 Diagnosis Line: 4:35:23 PM INTERPRETING MD: JAY BURGOS
[~2017-05-08 00:41] MED LIST changes: +ACCU-CHECK SOF1 EACH MC; +ARTHRITIS PAIN650 M3 PO; +AUGMENTIN PO; +FAMOTIDINE20 MG PO; +FLAGYL250 M1 PO; +GABAPENTIN300 M2 PO; +LEVEMIR FL100 UNIT/1 SUBQ; +PROBIOTIC1 EAC3 PO; +ZOFRAN8 MG PO
[2017-05-08 03:01] LABS: BASOPHIL# 0.1 X10e3 (0-0.3); DIFF IND NO; EOSINOPHIL% 0.1 % (0.0-7.0); HEMATOCRIT 32.1 % (38.0-50.0); HEMOGLOBIN 10.3 gm/dL (13.0-16.0); LYMPHOCYTE% 14.8 % (17.0-45.0); MEAN CELL VOLUME 86.3 FL (83-96); MEAN CORPUSCULAR HEMOGLOBIN 27.7 PG (28-34); MEAN CORPUSCULAR HGB CONC 32.1 g/dL (30-36); MEAN PLATELET VOLUME 7.1 FL (6.5-11.5); MONOCYTE# 0.4 X10e3 (0-1.0); MONOCYTE% 2.8 % (3.0-12.0); NEUTROPHIL# 11.2 X10e3 (1.5-7.1); NEUTROPHIL% 81.3 % (40-75); PLATELET COUNT 462 X10e3 (140-420); RED BLOOD COUNT 3.72 X10e (3.90-5.60); RED CELL DISTRIBUTION WIDTH 16.9 % (11.0-15.5); WHITE BLOOD COUNT 13.8 X10e3 (4.0-10.5)
[2017-05-08 03:37] LABS: ALBUMIN SERUM 2.7 g/dL (3.5-5.0); ALCOHOL BLOOD <5 mg/dL (0); ALKALINE PHOSPHATASE 192 U/L (32-92); ALT (SGPT) 11 U/L (10-40); AST (SGOT) 21 U/L (10-42); BILIRUBIN, DIRECT <0.1 mg/dL (0.0-0.2); BILIRUBIN,INDIRECT 0.2 mg/dL (0.0-0.9); BILIRUBIN,TOTAL 0.3 mg/dL (0.2-2.0); BLOOD UREA NITROGEN 55 mg/dL (9-23); BUN/CREATININE RATIO 26.19; CALCIUM SERUM 9.4 mg/dL (8.4-10.2); CARBON DIOXIDE 28 mmol/L (22-31); CHLORIDE 99 mmol/L (100-111); CREATININE SERUM 2.1 mg/dL (0.6-1.4); GLOM FILT RATE Estimated 35.4 mL/min (>60); GLUCOSE FASTING 98 mg/dL (70-110); POTASSIUM 4.1 mmol/L (3.5-5.1); PROTEIN TOTAL SERUM 8.1 g/dL (6.0-8.3); SODIUM 136 mmol/L (135-145)
[2017-05-08 05:46] LABS: URINE SOURCE CLEAN CATCH
[2017-05-08 05:51] LABS: URINE APPEARANCE CLEAR; URINE BILIRUBIN NEG (NEG); URINE BLOOD 2+ (NEG); URINE COLOR YELLOW; URINE GLUCOSE 100 MG/DL (NEG); URINE KETONE NEG (NEG); URINE LEUKOCYTE ESTERASE 3+ (NEG); URINE NITRATE NEG (NEG); URINE PH 6.5 (5-8); URINE PROTEIN TRACE (NEG); URINE SPECIFIC GRAVITY 1.011 (1.003-1.035); URINE UROBILINOGEN 0.2 MG/DL (NEG)
[2017-05-08 05:53] LABS: CULTURE INDICATED? YES; URINE BACTERIA AUWI NEG (NEGATIVE); URINE SQUAMOUS EPITHELIAL CELL MOD /[HPF]; UWBCS1 AUWI 25-50 (0-5)
[2017-05-08 06:04] LABS: U HYALINE CASTS AUWI 0-2 /[LPF]
[2017-05-08 06:06] LABS: URINE YEAST PRESENT
[2017-05-08 06:11] LABS: AMPHETAMINE NEG (NEG); BARBITURATES NEG (NEG); BENZODIAZEPINES NEG (NEG); COCAINE NEG (NEG); MARIJUANA NEG (NEG); OPIATES POS (NEG); TRICYCLIC ANTIDEPRESSANTS NEG (NEG); U METHADONE NEG (NEG)
== END 2017-05-08 07:19 | disposition home or self-care (01) ==
LOC: CED 00:41
PROVIDERS: Physician Assistant
DX: T40.2X1A Poisoning by other opioids, accidental (unintentional), initial encounter (principal); J18.9 Pneumonia, unspecified organism; N39.0 Urinary tract infection, site not specified; E11.9 Type 2 diabetes mellitus without complications; J44.9 Chronic obstructive pulmonary disease, unspecified; F17.210 Nicotine dependence, cigarettes, uncomplicated; Z79.4 Long term (current) use of insulin
CPT/HCPCS: 36415; 70450; 71020; 80048; 80076; 80307; 81003; 82550; 82947; 84484; 85025; 87086; 93005; 96360; 99284; G0480

== ENCOUNTER 2017-07-08 01:11 | Emergency (ER) | payer OTHER ==
[~2017-07-08] VITALS: Ht 182.9 cm; Wt 59.0 kg
== END 2017-07-08 07:11 | disposition home or self-care (01) ==
LOC: CED 01:11
DX: E11.649 Type 2 diabetes mellitus with hypoglycemia without coma (principal); F32.9 Major depressive disorder, single episode, unspecified; F17.210 Nicotine dependence, cigarettes, uncomplicated; Z98.890 Other specified postprocedural states
CPT/HCPCS: 82947; 96374; 99285